=== PATIENT | male | born 1950 | race Caucasian/White ===

== ENCOUNTER 2018-08-14 11:27 | Inpatient (IN) ==
[2018-08-14] MEDS ORDERED: 0.9 % SODIUM CHLORIDE 1,000 ML IV ONE ×2 (11:39→12:49)
[2018-08-14] MEDS ORDERED: PANTOPRAZOLE 40 MG VIAL IV ONE ×2 (11:41→22:28)
--- NOTE | 2018-08-14 11:41 | Emergency Department Note ---
General Adult HPI - General Chief complaint: Weakness Stated complaint: weakness Time Seen by Provider: 08/14/18 11:37 Source: patient Mode of arrival: ambulatory Limitations: no limitations - History of Present Illness HPI Narrative: 68 year old male transported via ambulance from Jen TURNER's office with 1 month history of dark tarry diarrhea stools, with discontinuation of Plavix 2 weeks ago, upon arrival patient complaining of dyspnea at rest, weakness and continued dark brown-black liquid stools, found to be hypotensive in 90s/50s, presenting with 1 18g IV in R AC. Patient denies fevers, chills nor sweats. Able to speak in complete sentences. - Related Data Home Medications Medication Instructions Recorded Confirmed milk thistle 150 mg capsule 300 mg PO QDAY 08/04/18 08/14/18 Allergies Allergy/AdvReac Type Severity Reaction Status Date / Time No Known Drug Allergies Allergy Verified 08/04/18 14:45 Review of Systems All systems ED: reviewed and negative except as stated. Past Medical History - Past Medical History Source: nursing notes reviewed - Social History smoking status: Former smoker Physical Exam Limitations: no limitations General appearance: alert, anxious, in no apparent distress Head: atraumatic, normocephalic Eye: Present: normal appearance, PERRL, EOMI ENT: normal exam, normal oropharynx, mucous membranes dry Neck: Present: normal inspection, full ROM Chest: Present: normal inspection, symmetric chest wall rise Respiratory: Present: normal lung sounds bilaterally. Absent: respiratory distress, rales/crackles, wheezes, stridor Cardiovascular: Present: regular rate, normal rhythm, normal heart sounds Abdominal: Present: soft, distention, normal bowel sounds. Absent: tenderness, guarding, rebound Extremities: Present: normal inspection, full ROM Course Vital Signs Temperature 97.1 F 08/14/18 11:27 Pulse Rate 88 08/14/18 11:27 Respiratory Rate 16 08/14/18 11:27 Blood Pressure 98/58 08/14/18 11:27 Pulse Oximetry (%) 100 08/14/18 11:27 Temperature 97.1 F 08/14/18 11:27 Pulse Rate 70 08/14/18 14:47 Respiratory Rate 16 08/14/18 14:47 Blood Pressure 104/70 08/14/18 14:46 Pulse Oximetry (%) 96 08/14/18 14:47 Medical Decision Making - [facility] Narrative Medical decision making narrative: with liquid black stools, hemocult positive, 2 18g IV's obtained, given 1L LR bolus upon arrival, Protonix 40mg IV and drip started, with BP improving from 80s/80s in field to 90s/60s. Patient underwent CT angio chest, CT abdomen/pelvis w/contrast with CT angio chest negative for PE, CT abdomen demonstrating diffuse markedly thickened transverse colon suspicious for colitis, c.diff toxin B negative. Aggressively volume hydrated and MAP improved to 80s. Discussed case with Dr. Bella, consulted, will undergo colonoscopy in the morning if patient remains medically stable. Discussed case with Dr. Ellison, hospitalist, to be admited for presumptive ischemic colitis vs GI bleed with diffuse transverse colitis. Agreed to admission at 15:12. - Lab Data Lab results reviewed: Yes I reviewed the patient's lab results. Result diagrams: 08/14/18 11:55 08/14/18 11:55 Lab Results 08/14/18 08/14/18 08/14/18 Range/Units 11:52 11:55 11:55 WBC 8.4 (4.5-11.0) K/mcL RBC 4.05 L (4.50-5.90) M/mcL Hgb 11.7 L (13.5-16.5) g/dL Hct 35.8 L (41.0-55.0) % POC Hct 33.0 L (41.0-55.0) % MCV 88.4 (80.0-100.0) fL MCH 29.0 (26.0-34.0) pg MCHC 32.8 (31.0-36.0) g/dL RDW 13.2 (11.5-14.5) % Plt Count 365 (140-440) K/mcL MPV 8.3 (7.4-10.4) fL Gran % 67.6 (38.0-78.0) % Lymph % (Auto) 18.8 (15.5-49.0) % [place] % (Auto) 13.0 H (1.0-12.0) % Eos % (Auto) 0.5 (0.0-7.0) % Baso % (Auto) 0.1 (0.0-2.0) % Gran # 5.7 (1.8-8.0) K/mcL Lymph # (Auto) 1.6 (1.5-4.8) K/mcL [place] # (Auto) 1.1 H (0.1-0.9) K/mcL Eos # (Auto) 0 (0.0-0.7) K/mcL Baso # (Auto) 0 (0.0-0.3) K/mcL Differential Comment PT 14.7 H (11.9-14.5) sec INR 1.2 H (0.9-1.1) VBG Lactic Acid (0.5-2.0) mmol/L POC Sodium 132 L (133-145) mmol/L Sodium 133 (133-145) mmol/L POC Potassium 3.4 (3.3-5.1) mmol/L Potassium 3.6 (3.3-5.1) mmol/L POC Chloride 96 (96-108) mmol/L Chloride 95 L (96-108) mmol/L Carbon Dioxide 21 L (22-30) mmol/L POC Total CO2 25 (22-30) mmol/L Anion Gap 17.0 H (8-16) POC BUN 15 (8-23) mg/dl BUN 16 (8-23) mg/dl Creatinine 0.7 (0.7-1.2) mg/dl POC Creatinine 0.7 (0.7-1.2) mg/dl GFR Calculation 96 Glucose 151 H (70-105) mg/dL POC Glucose 151 H (70-105) mg/dL Calcium 8.2 L (8.6-10.4) mg/dl POC WB Ioniz Calcium 1.03 L (1.16-1.32) mmol/L Total Bilirubin 0.9 (0.0-1.0) mg/dL AST 44 H (0-37) U/l ALT 46 H (0-40) U/l Alkaline Phosphatase 75 (39-117) U/L Troponin T (0-0.03) ng/ml Total Protein 5.9 (5.9-8.4) gm/dL Albumin 2.3 L (3.2-5.2) gm/dL Globulin 3.6 (2.2-3.7) gm/dL Albumin/Globulin Ratio 0.6 L (1.0-2.3) Lipase 21 (7-60) U/L Urine Color Urine Appearance Urine pH (5.0-9.0) Ur Specific [place] (1.000-1.035) Urine Protein (NEG) mg/dL Urine Glucose (UA) (NEG) mg/dL Urine Ketones (NEG) mg/dL Urine Occult Blood (<0.03) mg/dL Urine Nitrate (NEG) Urine Bilirubin (NEG) mg/dL Urine Urobilinogen (NEG) mg/dL Ur Leukocyte Esterase (NEG) /uL Ur Culture Indicated? 08/14/18 08/14/18 08/14/18 Range/Units 11:56 11:56 14:24 WBC (4.5-11.0) K/mcL RBC (4.50-5.90) M/mcL Hgb (13.5-16.5) g/dL Hct (41.0-55.0) % POC Hct (41.0-55.0) % MCV (80.0-100.0) fL MCH (26.0-34.0) pg MCHC (31.0-36.0) g/dL RDW (11.5-14.5) % Plt Count (140-440) K/mcL MPV (7.4-10.4) fL Gran % (38.0-78.0) % Lymph % (Auto) (15.5-49.0) % [place] % (Auto) (1.0-12.0) % Eos % (Auto) (0.0-7.0) % Baso % (Auto) (0.0-2.0) % Gran # (1.8-8.0) K/mcL Lymph # (Auto) (1.5-4.8) K/mcL [place] # (Auto) (0.1-0.9) K/mcL Eos # (Auto) (0.0-0.7) K/mcL Baso # (Auto) (0.0-0.3) K/mcL Differential Comment PT (11.9-14.5) sec INR (0.9-1.1) VBG Lactic Acid 2.1 H (0.5-2.0) mmol/L POC Sodium (133-145) mmol/L Sodium (133-145) mmol/L POC Potassium (3.3-5.1) mmol/L Potassium (3.3-5.1) mmol/L POC Chloride (96-108) mmol/L Chloride (96-108) mmol/L Carbon Dioxide (22-30) mmol/L POC Total CO2 (22-30) mmol/L Anion Gap (8-16) POC BUN (8-23) mg/dl BUN (8-23) mg/dl Creatinine (0.7-1.2) mg/dl POC Creatinine (0.7-1.2) mg/dl GFR Calculation Glucose (70-105) mg/dL POC Glucose (70-105) mg/dL Calcium (8.6-10.4) mg/dl POC WB Ioniz Calcium (1.16-1.32) mmol/L Total Bilirubin (0.0-1.0) mg/dL AST (0-37) U/l ALT (0-40) U/l Alkaline Phosphatase (39-117) U/L Troponin T < 0.01 (0-0.03) ng/ml Total Protein (5.9-8.4) gm/dL Albumin (3.2-5.2) gm/dL Globulin (2.2-3.7) gm/dL Albumin/Globulin Ratio (1.0-2.3) Lipase (7-60) U/L Urine Color Yellow Urine Appearance Clear Urine pH 5.0 (5.0-9.0) Ur Specific [place] 1.059 H (1.000-1.035) Urine Protein Neg (NEG) mg/dL Urine Glucose (UA) Negative (NEG) mg/dL Urine Ketones 20 A (NEG) mg/dL Urine Occult Blood Neg (<0.03) mg/dL Urine Nitrate Neg (NEG) Urine Bilirubin Neg (NEG) mg/dL Urine Urobilinogen Neg (NEG) mg/dL Ur Leukocyte Esterase Neg (NEG) /uL Ur Culture Indicated? No - Radiology Data Radiology results reviewed: Yes I reviewed the patient's radiology results. Disposition Pt seen by PANTOGRAPH ENGRAVER/PA only: No Clinical Impression: Colitis Disposition: Xfer As Inpt ([facility]) Condition: Serious Referrals: Sophy Vizcaino DO [Primary Care Provider] -
[2018-08-14] MEDS ORDERED: PANTOPRAZOLE 80 MG in 0.9 % SODIUM CHLORIDE 100 ML IV SCH (12:00)
[2018-08-14 12:23] LABS: Basophils # (Auto) 0 K/mcL (0.0-0.3); Basophils % (Auto) 0.1 % (0.0-2.0); Eosinophils # (Auto) 0 K/mcL (0.0-0.7); Eosinophils % (Auto) 0.5 % (0.0-7.0); Granulocytes % (Auto) 67.6 % (38.0-78.0); Lymphocytes # (Auto) 1.6 K/mcL (1.5-4.8); Lymphocytes % (Auto) 18.8 % (15.5-49.0); Mean Cell Volume 88.4 fL (80.0-100.0); Mean Corpuscular HGB Conc 32.8 g/dL (31.0-36.0); Monocytes # (Auto) 1.1 K/mcL (0.1-0.9); Platelet Count 365 K/mcL (140-440); RBC 4.05 M/mcL (4.50-5.90); Red Cell Distribution Width 13.2 % (11.5-14.5)
[2018-08-14 12:51] LABS: ALT/SGPT 46 U/l (0-40); Albumin 2.3 gm/dL (3.2-5.2); Albumin/Globulin Ratio 0.6 (1.0-2.3); Alkaline Phosphatase 75 U/L (39-117); Blood Urea Nitrogen 16 mg/dl (8-23); Lipase 21 U/L (7-60)
[2018-08-14 14:57] LABS: Appearance,Urine CLEAR; Bilirubin,Urine NEG (NEG); Color,Urine YELLOW; Glucose,Urine (UA) NEGATIVE (NEG); Leukocyte Esterase,Urine NEG /uL (NEG); Protein,Urine NEG (NEG); Specific Gravity,Urine 1.059 (1.000-1.035); Urine Blood NEG mg/dL (<0.03); Urobilinogen,Urine NEG (NEG)
--- NOTE | 2018-08-14 15:04 | Cat Scan Report ---
CLINICAL INFORMATION: Shortness breath following discontinuing anticoagulation COMPARISON: None. TECHNIQUE: 80 cc of Isovue-300 were injected intravenously. Using SmartPrep to maximize pulmonary artery opacification, 2.5 mm helical slices were obtained from the lung apices through the lung bases. Following reconstruction, 2.5 mm sagittal, coronal, and axial reformations were processed. The exam was reviewed at mediastinal, lung, and bone windows. The exam was performed using radiation dose optimization techniques including, but not limited to, automated exposure control, adjustment of the mA and/or kV according to patient size and use of iterative reconstruction technique. FINDINGS: Pulmonary parenchymal windows show scattered scarring in periphery of both lower lobes. No diffuse/regional infiltrates or nodules. The pleural spaces are normal. Pulmonary arteries are well-opacified and normal in contour and caliber without evidence of embolus. Thoracic aorta is also normal in contour and caliber. There is no adenopathy the mediastinal hilar or axillary region. The heart is borderline enlarged. The fibrofatty calcific plaque in the coronary arteries. Esophagus is unremarkable. Thyroid is diminutive The bones and soft tissues of the chest wall are normal. IMPRESSION: 1. No evidence of pulmonary embolus or other acute process 2. Heavy fibrofatty and calcific plaque in the coronary arteries. Suspect occlusion or subtotal occlusive disease. Consider cardiology referral for stress testing. 3. Diminutive thyroid. Please correlate with TSH and T4/T3 levels Interpreted and Authenticated by: Reji Qiu 08/14/18
--- NOTE | 2018-08-14 15:09 | Cat Scan Report ---
CLINICAL INFORMATION: Diffuse abdominal pain and diarrhea COMPARISON: None. TECHNIQUE: Following enteric contrast, 80 cc of Isovue-300 were injected intravenously, and 60 seconds later, 0.625 mm helical slices were obtained from the mid heart through the subtrochanteric regions. Following reconstruction, 2.5 mm sagittal, coronal and axial reformatted images were processed and reviewed at bone, lung and soft tissue windows. Five minutes later, 0.625 mm helical slices were obtained from the mid heart through the kidneys and viewed at soft tissue windows.The exam was performed using radiation dose optimization techniques including, but not limited to, automated exposure control, adjustment of the mA and/or kV according to patient size and use of iterative reconstruction technique. FINDINGS: There is mild fatty change of the liver, but no focal hepatic lesions. The gallbladder and bile ducts, both kidneys, adrenal glands, spleen, pancreas, and aorta, including aortic branches are normal in size, configuration and attenuation without focal lesion. No free air, free fluid or adenopathy. Images through the pelvis show prostate seminal vesicles and urinary bladder to be normal. There is diffuse wall thickening of the ascending, transverse and descending colonic segments with mild injection in the pericolonic fat. This would suggest an infiltrative pathology degenerative ischemia, infection or inflammation. The stomach and small bowel are normal. There is no free air, free fluid or adenopathy. Bone windows show no osseous abnormality IMPRESSION: Diffuse wall thickening of the ascending colon transverse and descending colon with adjacent pericolonic fat injection suggesting diffuse infiltrative pathology such as inflammatory bowel disease (ulcerative colitis), pseudomembranous colitis, ischemic colitis or infectious colitis. Suggest colonoscopy Interpreted and Authenticated by: Reji Qiu 08/14/18
[2018-08-14 15:48] LABS: Band Neutrophils % 24 % (0-10); Eosinophils % (Manual) 2 % (0-7); Lymphocytes % 31 % (15-49); Monocytes % (Manual) 11 % (1-12); Platelet Estimate NORMAL (NORMAL); RBC Morphology NORMAL (NORMAL); Segmented Neutrophils % 32 % (38-78); Toxic Granulation FEW (NONE SEEN)
--- NOTE | 2018-08-14 16:23 | Internal Med History&Physical ---
Medical - H&P: [facility] Patient information: Note initiated : 08/14/18 at 4:20 pm Service Date, if different from initiated Date: [] Patient: Mal Green a 68 y/o M admitted on for weakness. Chief Complaint: [] History of present illness: Mr. Green is a 68 year old M Referred to the ED by Jen Fuller for hypotension and bloody diarrhea. Patient states that about a month ago on ' he noticed bright red blood per rectum. He stopped his Plavix at the time, for which he takes for vascular disease. He had a carotid endarterectomy on the right. Since stopping the Plavix use had dark diarrhea about 3 times a day and has been losing weight. He finally went into the walk-in clinic about a week ago and he was referred to see Jen Fuller who he saw today. Reports his systolic blood pressure was in the 80s in our office and he had evidence of GI bleed. He was sent to the ER where his blood pressure was in the 90s. I believe he received IV fluids at Jen Fuller's office. He received several liters of fluid in the ED which brought him up from the from 90 to low 100s. He was is mildly tachycardic. He also complains of dyspnea at rest and weakness, as well as lightheadedness. Denies fevers or chills. Has abdominal pain which he isolated more in the right lower quadrant which is crampy and sometimes sharp. In the ED had a CT abdomen pelvis which showed diffusely colitis along the a sending transverse and descending colon. C. difficile toxin was negative. Review of Systems: Pertinent positive as above. Denies headache/fever/chills/nausea/vomiting/chest pain/cough. Remaining 10 point review of systems reviewed and negative Medical - H&P: PM Medical history: Medical History (Last Updated 08/12/18 @ 14:24 by Makenna Jim) Bilateral carotid artery stenosis (Chronic) Hepatitis C (Chronic) finished Harvoni Hepatitis B (Chronic) Diabetes (Chronic ~2009) diet controlled Anemia (Chronic) Past Surgical History (Last Updated 08/12/18 @ 14:24 by Makenna Jim) History of colonoscopy (Chronic) History of surgery (Chronic ~03/2018) Right carotid endarterectomy Family History (Last Updated 08/12/18 @ 14:25 by Makenna Jim) Other Mother had Alzheimer's and father had vascular disease Social History (Last Updated 08/12/18 @ 14:26 by Makenna Jim) Quit smoking and drinking in the 80s Embolus with a cane Lives by himself Medical - H&P: Meds Home Medications Medication Instructions Recorded Confirmed Type milk thistle 150 mg capsule 300 mg PO QDAY 08/04/18 08/14/18 History Allergies Allergy/AdvReac Type Severity Reaction Status Date / Time No Known Drug Allergies Allergy Verified 08/04/18 14:45 Medical - H&P: Exam - Constitutional Vitals: Temp Pulse Resp BP Pulse Ox 97.1 F 88 22 99/74 99 08/14/18 11:27 08/14/18 15:46 08/14/18 15:46 08/14/18 15:46 08/14/18 15:46 Exam: General: Appears quite fatigued ,no acute Distress Eyes/N/T: EOMI, PEERL, DMM Head/Neck: neck supple, normocephalic atraumatic CV: Mildly tacky but regular , 2 out of 6 systolic murmur Pulm: Clear b/l, no wheezing/rhonchi/rales Abd: soft, minimally tender right quadrants, +BS x4 Ext: no clubbing/cyanosis/edema Neuro: Lethargic, no focal deficits, moves all extremities, CN 2-12 grossly intact, symmetrical strength b/l upper/lower, sensations intact b/l upper/lower Skin: warm/dry Medical - H&P: Reslt - Labs CBC & Chem 7: 08/14/18 11:55 08/14/18 11:55 Labs: Short CBC 08/14/18 Range/Units 11:55 WBC 8.4 (4.5-11.0) K/mcL Hgb 11.7 L (13.5-16.5) g/dL Hct 35.8 L (41.0-55.0) % Plt Count 365 (140-440) K/mcL BMP 08/14/18 11:55 Sodium 133 Potassium 3.6 Chloride 95 L Carbon Dioxide 21 L BUN 16 Creatinine 0.7 Glucose 151 H Calcium 8.2 L Cardiac Enzymes 08/14/18 Range/Units 11:56 Troponin T < 0.01 (0-0.03) ng/ml Liver Function 03/16/19 Range/Units 11:55 Total Bilirubin 0.9 (0.0-1.0) mg/dL AST 44 H (0-37) U/l ALT 46 H (0-40) U/l Alkaline Phosphatase 75 (39-117) U/L Albumin 2.3 L (3.2-5.2) gm/dL Urine 08/14/18 Range/Units 14:24 Urine Color Yellow Urine Appearance Clear Urine pH 5.0 (5.0-9.0) Ur Specific [place] 1.059 H (1.000-1.035) Urine Protein Neg (NEG) mg/dL Urine Glucose (UA) Negative (NEG) mg/dL - Impressions CTA chest no PE CT of the abdomen shows diffuse wall thickening of the descending transverse and descending colon and adjacent pericolonic fat injected suggesting diffuse inf iltrative pathology such as inflammatory bowel disease pseudomembranous colitis ischemic colitis or infectious colitis Medical - H&P: A/P - Narrative A/P Narrative: A: *Bloody diarrhea with diffuse colitis: Differential includes ischemic colitis versus infectious versus inflammatory bowel Dz; -c. diff neg *Symptomatic anemia with Dyspnea and Hypotension: *DM: Diet-controlled *Vascular disease: With carotid endarterectomy *History of hepatitis C: Treated with Harvoni * P: -IVF's -Serial H&H, -Protonix drip -Stool culture and fecal WBCs pending -Dr. Bella for colonoscopy in the morning -Clear liquid diet with n.p.o. after midnight -check esr and manual diff - -SSI -pt/ot -ppx: SCD
[2018-08-14] MEDS ORDERED: MAGNESIUM SULFATE 2 GM/50 ML BAG IV PRN (18:56)
[2018-08-14] MEDS ORDERED: IPRATROPIUM/ALBUTEROL 3 ML AMPUL.NEB NEB PRN (18:56)
[2018-08-14] MEDS ORDERED: PROCHLORPERAZINE 10 MG/2 ML VIAL IV PRN (18:56)
[2018-08-14] MEDS ORDERED: ONDANSETRON 4 MG/2 ML VIAL IV PRN (18:56)
[2018-08-14] MEDS ORDERED: ACETAMINOPHEN 325 MG TABLET PO PRN (18:56)
[2018-08-14] MEDS ORDERED: POTASSIUM CHLORIDE 40 MEQ in DEXTROSE 5% IN WATER 500 ML IV PRN (18:56)
[2018-08-14] MEDS ORDERED: DEXTROSE 31 GM ORAL.SUSP PO PRN (18:56)
[2018-08-14] MEDS ORDERED: POTASSIUM CHLORIDE 20 MEQ TABLET PO PRN ×2 (18:56)
[2018-08-14] MEDS ORDERED: 0.9 % SODIUM CHLORIDE 250 ML IV SCH (18:56)
[2018-08-14] MEDS ORDERED: DEXTROSE 50% 50 ML VIAL IV PRN (18:56)
[2018-08-14] MEDS: 0.9 % SODIUM CHLORIDE 1,000 ML IV SCH (19:00)
[2018-08-14] MEDS: INSULIN LISPRO 1 UNIT/0.01 ML UNIT SQ SCH ×2 (19:26→21:52)
[2018-08-14 20:50] LABS: ALT/SGPT 39 U/l (0-40); Albumin 1.8 gm/dL (3.2-5.2); Albumin/Globulin Ratio 0.5 (1.0-2.3); Alkaline Phosphatase 69 U/L (39-117); Bilirubin,Direct < 0.2 mg/dL (0.0-0.3); Blood Urea Nitrogen 15 mg/dl (8-23); C-Reactive Protein 10.5 mg/dl (0.0-0.8); Gamma Glutamyl Transpeptidase 31 U/L (8-61); Uric Acid 3.4 mg/dL (2.5-8.0)
[2018-08-14] MEDS: CIPROFLOXACIN 400 MG/200 ML BAG IV SCH (21:51)
[2018-08-14] MEDS: PANTOPRAZOLE 80 MG in 0.9 % SODIUM CHLORIDE 100 ML IV SCH (22:43)
[2018-08-14] MEDS: 0.9 % SODIUM CHLORIDE 10 ML SYRINGE IV SCH (22:45)
[2018-08-14] MEDS: metroNIDAZOLE 500 MG/100 ML BAG IV SCH (23:33)
[2018-08-15] MEDS: 0.9 % SODIUM CHLORIDE 1,000 ML IV SCH ×4 (02:19→20:50)
[2018-08-15] MEDS: metroNIDAZOLE 500 MG/100 ML BAG IV SCH ×3 (05:50→22:42)
[2018-08-15] MEDS: 0.9 % SODIUM CHLORIDE 10 ML SYRINGE IV SCH ×3 (05:53→21:02)
[2018-08-15 06:13] LABS: Mean Cell Volume 88.7 fL (80.0-100.0); Mean Corpuscular HGB Conc 32.5 g/dL (31.0-36.0); Platelet Count 308 K/mcL (140-440); Red Cell Distribution Width 12.8 % (11.5-14.5)
[2018-08-15 06:37] LABS: ALT/SGPT 47 U/l (0-40); Albumin 1.8 gm/dL (3.2-5.2); Albumin/Globulin Ratio 0.6 (1.0-2.3); Alkaline Phosphatase 60 U/L (39-117); Bilirubin,Direct < 0.2 mg/dL (0.0-0.3); Blood Urea Nitrogen 13 mg/dl (8-23); Gamma Glutamyl Transpeptidase 27 U/L (8-61); Uric Acid 2.7 mg/dL (2.5-8.0)
[2018-08-15 06:42] LABS: Band Neutrophils % 30 % (0-10); Lymphocytes % 27 % (15-49); Monocytes % (Manual) 18 % (1-12); Platelet Estimate NORMAL (NORMAL); RBC Morphology NORMAL (NORMAL); Segmented Neutrophils % 25 % (38-78); Toxic Granulation 2+ (NONE SEEN)
--- NOTE | 2018-08-15 08:05 | Internal Med Progress Note ---
Medical - PN: Subj Patient information: Note initiated : 08/15/18 at 8:00 am Service Date, if different from initiated Date: [] Patient: Mal Green a 68 y/o M admitted on 08/14/18 for weakness. Chief Complaint: [] Interval history: Mr. Green is a 68 year old M Referred to the ED by Jen Fuller for hypotension and bloody diarrhea. Patient states that about a month ago on ' he noticed bright red blood per rectum. He stopped his Plavix at the time, for which he takes for vascular disease. He had a carotid endarterectomy on the right. Since stopping the Plavix use had dark diarrhea about 3 times a day and has been losing weight. He finally went into the walk-in clinic about a week ago and he was referred to see Jen Fuller who he saw today. Reports his systolic blood pressure was in the 80s in our office and he had evidence of GI bleed. He was sent to the ER where his blood pressure was in the 90s. I believe he received IV fluids at Jen Fuller's office. He received several liters of fluid in the ED which brought him up from the from 90 to low 100s. He was is mildly tachycardic. He also complains of dyspnea at rest and weakness, as well as lightheadedness. Denies fevers or chills. Has abdominal pain which he isolated more in the right lower quadrant which is crampy and sometimes sharp. In the ED had a CT abdomen pelvis which showed diffusely colitis along the a sending transverse and descending colon. C. difficile toxin was negative. 08/15 Patient adamantly refusing to undergo colonoscopy at the facility. Willing to undergo EGD but not colonoscopy. Had a discussion with him I could not persuade him. Said he is okay with having it done at [place] and requested the nurse life-flight him to [place]. Now he is okay with have the procedure done here. One episode of diarrhea overnight. Has some abdominal discomfort but otherwise no complaints Review of Systems: denies headache/fever/chills/nausea/vomiting/chest pain/cough/dyspnea. Otherwise see above. - Constitutional Vitals: Vital Signs Temp Pulse Resp BP Pulse Ox 98.1 F 93 H 18 103/59 94 08/14/18 18:54 08/15/18 01:01 08/15/18 06:05 08/15/18 06:05 08/15/18 06:05 Period Temp Pulse Resp BP Sys/Leon Pulse Ox Last 24 Hr 97.1 F-98.1 F 67-103 11-28 96-130/56-97 93-100 Intake and Output 08/14/18 08/15/18 08/15/18 21:59 05:59 13:59 Intake Total 1000 1760 Balance 1000 1760 Weight 66.814 kg Intake & Output: Intake & Output 08/14/18 08/15/18 08/15/18 21:59 05:59 13:59 Intake Total 1000 1760 Balance 1000 1760 Weight 66.814 kg Intake: IV 1000 1400 Sodium Chloride 0.9% 1,000 ml @ 1000 1000 100 mls/hr IV .Q10H IZAIAH Rx#: [id number] Oral 360 Exam: General: Appears quite fatigued ,no acute Distress Eyes/N/T: EOMI, Head/Neck: neck supple, CV: RRR, 2/6SM Pulm: Clear b/l, no wheezing/rhonchi/rales Abd: soft, minimally tender right quadrants, +BS x4 Ext: no clubbing/cyanosis/edema Neuro: Lethargic, no focal deficits, moves all extremities, Skin: warm/dry Medical - PN: Obj Da - Labs CBC & Chem 7: 08/15/18 03:57 08/15/18 03:57 Labs: Abnormal Lab Results 08/15/18 08/15/18 08/14/18 03:57 03:57 19:17 RBC 3.20 L Hgb 9.2 L Hct 28.3 L POC Hct [place] % (Auto) [place] # (Auto) Seg Neutrophils % 25 L Band Neutrophils % 30 H Monocytes % (Manual) 18 H WBC Morphology Abnorm A Toxic Granulation 2+ A ESR PT INR VBG Lactic Acid POC Sodium Sodium 130 L Chloride Carbon Dioxide 19 L 20 L Anion Gap Creatinine 0.6 L 0.6 L Glucose 185 H 205 H POC Glucose Calcium 7.5 L 7.6 L POC WB Ioniz Calcium Phosphorus 0.9 L 2.6 L AST 65 H 46 H ALT 47 H Lactate Dehydrogenase 255 H C-Reactive Protein 10.5 H Total Protein 4.7 L 5.4 L Albumin 1.8 L 1.8 L Albumin/Globulin Ratio 0.6 L 0.5 L Ur Specific [place] Urine Ketones 08/14/18 08/14/18 08/14/18 19:17 14:24 11:56 RBC Hgb 10.4 L Hct 32.1 L POC Hct [place] % (Auto) [place] # (Auto) Seg Neutrophils % Band Neutrophils % Monocytes % (Manual) WBC Morphology Toxic Granulation ESR 42 H PT INR VBG Lactic Acid 2.1 H POC Sodium Sodium Chloride Carbon Dioxide Anion Gap Creatinine Glucose POC Glucose Calcium POC WB Ioniz Calcium Phosphorus AST ALT Lactate Dehydrogenase C-Reactive Protein Total Protein Albumin Albumin/Globulin Ratio Ur Specific [place] 1.059 H Urine Ketones 20 A 08/14/18 08/14/18 08/14/18 11:55 11:55 11:55 RBC 4.05 L Hgb 11.7 L Hct 35.8 L POC Hct 33.0 L [place] % (Auto) 13.0 H [place] # (Auto) 1.1 H Seg Neutrophils % 32 L Band Neutrophils % 24 H Monocytes % (Manual) WBC Morphology Abnorm A Toxic Granulation Few A ESR PT INR VBG Lactic Acid POC Sodium 132 L Sodium Chloride 95 L Carbon Dioxide 21 L Anion Gap 17.0 H Creatinine Glucose 151 H POC Glucose 151 H Calcium 8.2 L POC WB Ioniz Calcium 1.03 L Phosphorus AST 44 H ALT 46 H Lactate Dehydrogenase C-Reactive Protein Total Protein Albumin 2.3 L Albumin/Globulin Ratio 0.6 L Ur Specific [place] Urine Ketones 08/14/18 11:52 RBC Hgb Hct POC Hct [place] % (Auto) [place] # (Auto) Seg Neutrophils % Band Neutrophils % Monocytes % (Manual) WBC Morphology Toxic Granulation ESR PT 14.7 H INR 1.2 H VBG Lactic Acid POC Sodium Sodium Chloride Carbon Dioxide Anion Gap Creatinine Glucose POC Glucose Calcium POC WB Ioniz Calcium Phosphorus AST ALT Lactate Dehydrogenase C-Reactive Protein Total Protein Albumin Albumin/Globulin Ratio Ur Specific [place] Urine Ketones Meds: Medications Acetaminophen (Tylenol) 650 mg PO Q6HP PRN PRN Reason: PAIN/FEVER > 101 Albuterol/Ipratropium (Duoneb) 3 ml NEB Q4HP PRN PRN Reason: Shortness Of Breath Dextrose (Dextrose 50%) 0 ml IV UD PRN PRN Reason: Hypoglycemia Diagnostic Test (Pha) (Accu-Chek) 1 each FS ACHS IZAIAH Last Admin: 03/16/19 21:52 Dose: 1 each Documented by: Glucose (Insta-Glucose) 15 gm PO PRN PRN PRN Reason: Hypoglycemia Pantoprazole Sodium 80 mg/ (Sodium Chloride) 100 mls @ 10 mls/hr IV Q10H [facility] Last Admin: 08/14/18 22:43 Dose: 8 mg/hr, 10 mls/hr Documented by: Potassium Chloride 40 meq/ (Dextrose) 520 mls @ 130 mls/hr IV ONCE PRN PRN Reason: Potassium < 3 Magnesium Sulfate (Magnesium Sulfate) 2 gm in 50 mls @ 50 mls/hr IV ONCE PRN PRN Reason: Magnesium </= 1.6 Sodium Chloride (Sodium Chloride 0.9%) 1,000 mls @ 100 mls/hr IV .Q10H [facility] Stop: 08/16/18 00:55 Last Admin: 08/15/18 03:22 Dose: Not Given Documented by: Ciprofloxacin (Cipro) 400 mg in 200 mls @ 200 mls/hr IV Q12H [facility]; Protocol Last Infusion: 08/15/18 00:48 Dose: Infused Documented by: Metronidazole (Flagyl) 500 mg in 100 mls @ 100 mls/hr IV Q8H [facility]; Protocol Last Admin: 08/15/18 05:50 Dose: 100 mls/hr Documented by: Insulin Human Lispro (Humalog) 0 unit SQ [facility]; Protocol Last Admin: 08/14/18 21:52 Dose: Not Given Documented by: Ondansetron HCl (Zofran) 4 mg IV Q4HP PRN PRN Reason: Nausea And Vomiting Potassium Chloride (Kdur) 40 meq PO ONCE PRN PRN Reason: Potssium is 3-3.5 Potassium Chloride (Kdur) 40 meq PO ONCE PRN PRN Reason: Potassium < 3 Prochlorperazine (Compazine) 10 mg IV Q6HP PRN PRN Reason: Nausea And Vomiting Sodium Chloride (Saline Flush) 10 ml IV Q8 [facility] Last Admin: 08/15/18 05:53 Dose: Not Given Documented by: Medical - PN: A/P - Time Spent With Patient Total time spent is greater than 50% in coordination of care (as documented) at patient's floor/unit and/or counseling patient: - Narrative A/P Narrative: A: *Bloody diarrhea with diffuse colitis: Differential includes ischemic colitis versus infectious versus inflammatory bowel Dz; -c. diff neg *Symptomatic acute blood loss anemia w/Dyspnea and Hypotension: 2/2 above, *DM: Diet-controlled *Vascular disease: With carotid endarterectomy *History of hepatitis C: Treated with Harvoni *Malnutrition: P: -IVF's -Serial H&H, -Protonix drip -Stool culture pending -Dr. Bella for colonoscopy this morning - -SSI -pt/ot -ppx: SCD Medical - PN: Qual - VTE Deep Vein Thrombosis/Pulmonary Embolism Present on Admission: Yes
[2018-08-15] MEDS ORDERED: PEG 3350/NA SULF,BICARB,CL/KCL 4,000 ML ORAL.SOL PO ONE ×2 (08:37→14:25)
[2018-08-15] MEDS: CIPROFLOXACIN 400 MG/200 ML BAG IV SCH ×2 (09:07→21:20)
[2018-08-15] MEDS: PANTOPRAZOLE 80 MG in 0.9 % SODIUM CHLORIDE 100 ML IV SCH ×3 (09:07→22:21)
[2018-08-15] MEDS: INSULIN LISPRO 1 UNIT/0.01 ML UNIT SQ SCH ×4 (09:15→21:01)
[2018-08-15] MEDS ORDERED: IPRATROPIUM/ALBUTEROL 3 ML AMPUL.NEB NEB PRN (11:58)
[2018-08-15] MEDS ORDERED: DEXTROSE 31 GM ORAL.SUSP PO PRN (11:58)
[2018-08-15] MEDS ORDERED: POTASSIUM CHLORIDE 40 MEQ in DEXTROSE 5% IN WATER 500 ML IV PRN (11:58)
[2018-08-15] MEDS ORDERED: ONDANSETRON 4 MG/2 ML VIAL IV PRN (11:58)
[2018-08-15] MEDS ORDERED: DEXTROSE 50% 50 ML VIAL IV PRN (11:58)
[2018-08-15] MEDS ORDERED: PROCHLORPERAZINE 10 MG/2 ML VIAL IV PRN (11:58)
[2018-08-15] MEDS ORDERED: POTASSIUM CHLORIDE 20 MEQ TABLET PO PRN (11:58)
[2018-08-15] MEDS ORDERED: METOCLOPRAMIDE 10 MG/2 ML VIAL ONE (17:45)
[2018-08-15] MEDS ORDERED: METOCLOPRAMIDE 10 MG/2 ML VIAL IV ONE (18:00)
[2018-08-15] MEDS ORDERED: PROPOFOL 200 MG/20 ML VIAL IV SCH (18:45)
[2018-08-15] MEDS ORDERED: MIDAZOLAM 2 MG/2 ML VIAL IV SCH (18:45)
[2018-08-15] MEDS ORDERED: SODIUM CHLORIDE 3 % 500 ML IV ONE (19:01)
[2018-08-16] MEDS: PANTOPRAZOLE 80 MG in 0.9 % SODIUM CHLORIDE 100 ML IV SCH (04:10)
[2018-08-16] MEDS: 0.9 % SODIUM CHLORIDE 10 ML SYRINGE IV SCH ×3 (05:12→23:07)
[2018-08-16] MEDS: metroNIDAZOLE 500 MG/100 ML BAG IV SCH ×2 (05:12→15:10)
[2018-08-16 05:38] LABS: Mean Cell Volume 88.5 fL (80.0-100.0); Mean Corpuscular HGB Conc 33.4 g/dL (31.0-36.0); Platelet Count 277 K/mcL (140-440); RBC 3.13 M/mcL (4.50-5.90); Red Cell Distribution Width 13.1 % (11.5-14.5)
[2018-08-16 07:00] LABS: ALT/SGPT 31 U/l (0-40); Albumin 1.6 gm/dL (3.2-5.2); Albumin/Globulin Ratio 0.6 (1.0-2.3); Alkaline Phosphatase 51 U/L (39-117); Bilirubin,Direct < 0.2 mg/dL (0.0-0.3); Blood Urea Nitrogen 5 mg/dl (8-23); Gamma Glutamyl Transpeptidase 21 U/L (8-61); Uric Acid 1.9 mg/dL (2.5-8.0)
[2018-08-16] MEDS: INSULIN LISPRO 1 UNIT/0.01 ML UNIT SQ SCH ×4 (07:26→23:06)
--- NOTE | 2018-08-16 07:45 | Internal Med Progress Note ---
Medical - PN: Subj Patient information: Note initiated : 08/16/18 at 7:41 am Service Date, if different from initiated Date: [] Patient: Mal Green a 68 y/o M admitted on 08/14/18 for weakness. Chief Complaint: [] Interval history: Mr. Green is a 68 year old M Referred to the ED by Jen Fuller for hypotension and bloody diarrhea. Patient states that about a month ago on ' he noticed bright red blood per rectum. He stopped his Plavix at the time, for which he takes for vascular disease. He had a carotid endarterectomy on the right. Since stopping the Plavix use had dark diarrhea about 3 times a day and has been losing weight. He finally went into the walk-in clinic about a week ago and he was referred to see Jen Fuller who he saw today. Reports his systolic blood pressure was in the 80s in our office and he had evidence of GI bleed. He was sent to the ER where his blood pressure was in the 90s. I believe he received IV fluids at Jen Fuller's office. He received several liters of fluid in the ED which brought him up from the from 90 to low 100s. He was is mildly tachycardic. He also complains of dyspnea at rest and weakness, as well as lightheadedness. Denies fevers or chills. Has abdominal pain which he isolated more in the right lower quadrant which is crampy and sometimes sharp. In the ED had a CT abdomen pelvis which showed diffusely colitis along the a sending transverse and descending colon. C. difficile toxin was negative. 08/15 Patient adamantly refusing to undergo colonoscopy at the facility. Willing to undergo EGD but not colonoscopy. Had a discussion with him I could not persuade him. Said he is okay with having it done at [facility] and requested the nurse life-flight him to [facility] [place]. Now he is okay with have the procedure done here. One episode of diarrhea overnight. Has some abdominal discomfort but otherwise no complaints 08/16 No overnight events. Little bit of abdominal discomfort but overall improved. No new pains or complaints. One loose stool overnight. H&H stable. Review of Systems: denies headache/fever/chills/nausea/vomiting/chest pain/cough/dyspnea. Otherwise see above. - Constitutional Vitals: Vital Signs Temp Pulse Resp BP Pulse Ox 98.5 F 92 H 16 103/61 94 08/16/18 06:44 08/16/18 07:32 08/16/18 07:32 08/16/18 06:44 08/16/18 07:32 Period Temp Pulse Resp BP Sys/Leon Pulse Ox Last 24 Hr 97.2 F-98.5 F 73-94 14-24 86-136/50-72 88-100 Intake and Output 08/15/18 08/16/18 08/16/18 21:59 05:59 13:59 Intake Total 3619 300 1100 Output Total 2100 700 Balance 1519 -400 1100 Weight 69.853 kg Intake & Output: Intake & Output 08/15/18 08/16/18 08/16/18 21:59 05:59 13:59 Intake Total 3619 300 1100 Output Total 2100 700 Balance 1519 -400 1100 Weight 69.853 kg Intake: IV 755 021 9325 Sodium Chloride 0.9% 1,000 ml @ 420 100 mls/hr IV .Q10H IZAIAH Rx#: [id number] Oral 3000 Output: Void Amount 200 Urine/Stool Mix 1800 500 Stool 300 Other: Meal NPO Urine Appearance Clear Urine Color Tea Colored Stool Size Moderate Small Stool Color Brown Yellow Stool Consistency Liquid Liquid # Voids 1 1 # Bowel Movements 1 # of times incontinent of 1 Bowels Exam: General: Appears quite fatigued ,no acute Distress Eyes/N/T: EOMI, Head/Neck: neck supple, CV: RRR, 2/6SM Pulm: Clear b/l, no wheezing/rhonchi/rales Abd: soft, minimally tender right quadrants, +BS x4 Ext: no clubbing/cyanosis/edema Neuro: Lethargic, no focal deficits, moves all extremities, Skin: warm/dry Medical - PN: Obj Da - Labs CBC & Chem 7: 08/16/18 04:22 08/16/18 04:22 Labs: Abnormal Lab Results 08/16/18 08/16/18 08/15/18 04:22 04:22 16:41 RBC 3.13 L Hgb 9.2 L 11.4 L Hct 27.7 L 34.7 L POC Hct [place] % (Auto) [place] # (Auto) Seg Neutrophils % Band Neutrophils % Monocytes % (Manual) WBC Morphology Toxic Granulation ESR PT INR VBG Lactic Acid POC Sodium Sodium Potassium 2.9 L* Chloride Carbon Dioxide Anion Gap BUN 5 L Creatinine 0.4 L Glucose POC Glucose Uric Acid 1.9 L Calcium 7.3 L POC WB Ioniz Calcium Phosphorus AST ALT Lactate Dehydrogenase C-Reactive Protein Total Protein 4.2 L Albumin 1.6 L Albumin/Globulin Ratio 0.6 L Prealbumin Ur Specific [place] Urine Ketones 08/15/18 08/15/18 08/15/18 08:34 03:57 03:57 RBC 3.20 L Hgb 9.2 L Hct 28.3 L POC Hct [place] % (Auto) [place] # (Auto) Seg Neutrophils % 25 L Band Neutrophils % 30 H Monocytes % (Manual) 18 H WBC Morphology Abnorm A Toxic Granulation 2+ A ESR PT INR VBG Lactic Acid POC Sodium Sodium Potassium Chloride Carbon Dioxide 19 L Anion Gap BUN Creatinine 0.6 L Glucose 185 H POC Glucose Uric Acid Calcium 7.5 L POC WB Ioniz Calcium Phosphorus 0.9 L AST 65 H ALT 47 H Lactate Dehydrogenase C-Reactive Protein Total Protein 4.7 L Albumin 1.8 L Albumin/Globulin Ratio 0.6 L Prealbumin 4.0 L Ur Specific [place] Urine Ketones 08/14/18 08/14/18 08/14/18 19:17 19:17 14:24 RBC Hgb 10.4 L Hct 32.1 L POC Hct [place] % (Auto) [place] # (Auto) Seg Neutrophils % Band Neutrophils % Monocytes % (Manual) WBC Morphology Toxic Granulation ESR 42 H PT INR VBG Lactic Acid POC Sodium Sodium 130 L Potassium Chloride Carbon Dioxide 20 L Anion Gap BUN Creatinine 0.6 L Glucose 205 H POC Glucose Uric Acid Calcium 7.6 L POC WB Ioniz Calcium Phosphorus 2.6 L AST 46 H ALT Lactate Dehydrogenase 255 H C-Reactive Protein 10.5 H Total Protein 5.4 L Albumin 1.8 L Albumin/Globulin Ratio 0.5 L Prealbumin Ur Specific [place] 1.059 H Urine Ketones 20 A 08/14/18 08/14/18 08/14/18 11:56 11:55 11:55 RBC Hgb Hct POC Hct 33.0 L [place] % (Auto) [place] # (Auto) Seg Neutrophils % 32 L Band Neutrophils % 24 H Monocytes % (Manual) WBC Morphology Abnorm A Toxic Granulation Few A ESR PT INR VBG Lactic Acid 2.1 H POC Sodium 132 L Sodium Potassium Chloride 95 L Carbon Dioxide 21 L Anion Gap 17.0 H BUN Creatinine Glucose 151 H POC Glucose 151 H Uric Acid Calcium 8.2 L POC WB Ioniz Calcium 1.03 L Phosphorus AST 44 H ALT 46 H Lactate Dehydrogenase C-Reactive Protein Total Protein Albumin 2.3 L Albumin/Globulin Ratio 0.6 L Prealbumin Ur Specific [place] Urine Ketones 08/14/18 08/14/18 11:55 11:52 RBC 4.05 L Hgb 11.7 L Hct 35.8 L POC Hct [place] % (Auto) 13.0 H [place] # (Auto) 1.1 H Seg Neutrophils % Band Neutrophils % Monocytes % (Manual) WBC Morphology Toxic Granulation ESR PT 14.7 H INR 1.2 H VBG Lactic Acid POC Sodium Sodium Potassium Chloride Carbon Dioxide Anion Gap BUN Creatinine Glucose POC Glucose Uric Acid Calcium POC WB Ioniz Calcium Phosphorus AST ALT Lactate Dehydrogenase C-Reactive Protein Total Protein Albumin Albumin/Globulin Ratio Prealbumin Ur Specific [place] Urine Ketones Meds: Medications Acetaminophen (Tylenol) 650 mg PO Q6HP PRN PRN Reason: PAIN/FEVER > 101 Albuterol/Ipratropium (Duoneb) 3 ml NEB Q4HP PRN PRN Reason: Shortness Of Breath Dextrose (Dextrose 50%) 0 ml IV UD PRN PRN Reason: Hypoglycemia Diagnostic Test (Pha) (Accu-Chek) 1 each FS ACHS [facility] Last Admin: 08/16/18 07:26 Dose: 1 each Documented by: Glucose (Insta-Glucose) 15 gm PO PRN PRN PRN Reason: Hypoglycemia Ciprofloxacin (Cipro) 400 mg in 200 mls @ 200 mls/hr IV Q12H IZAIAH; Protocol Last Infusion: 08/15/18 22:20 Dose: Infused Documented by: Potassium Chloride 40 meq/ (Dextrose) 520 mls @ 130 mls/hr IV ONCE PRN PRN Reason: Potassium < 3 Magnesium Sulfate (Magnesium Sulfate) 2 gm in 50 mls @ 50 mls/hr IV ONCE PRN PRN Reason: Magnesium </= 1.6 Metronidazole (Flagyl) 500 mg in 100 mls @ 100 mls/hr IV Q8H IZAIAH; Protocol Last Infusion: 08/16/18 06:12 Dose: Infused Documented by: Pantoprazole Sodium 80 mg/ (Sodium Chloride) 100 mls @ 10 mls/hr IV Q10H IZAIAH Last Admin: 08/16/18 04:10 Dose: Not Given Documented by: Insulin Human Lispro (Humalog) 0 unit SQ ACHS [facility]; Protocol Last Admin: 08/16/18 07:26 Dose: Not Given Documented by: Ondansetron HCl (Zofran) 4 mg IV Q4HP PRN PRN Reason: Nausea And Vomiting Potassium Chloride (Kdur) 40 meq PO ONCE PRN PRN Reason: Potssium is 3-3.5 Potassium Chloride (Kdur) 40 meq PO ONCE PRN PRN Reason: Potassium < 3 Prochlorperazine (Compazine) 10 mg IV Q6HP PRN PRN Reason: Nausea And Vomiting Sodium Chloride (Saline Flush) 10 ml IV Q8 [facility] Last Admin: 08/16/18 05:12 Dose: 10 ml Documented by: Medical - PN: A/P - Time Spent With Patient Total time spent is greater than 50% in coordination of care (as documented) at patient's floor/unit and/or counseling patient: - Narrative A/P Narrative: A: *Bloody diarrhea w/diffuse colitis: s/p colonoscopy 08/15 per GI IBD vs Ischemic colitis -c. diff neg *Symptomatic acute blood loss anemia w/Dyspnea and Hypotension: 2/2 above, -stable *DM: Diet-controlled *Vascular disease: With carotid endarterectomy *History of hepatitis C: Treated with Harvoni *Malnutrition: *Hypokalemia P: -s/p IVF -clears -monitor H&H -Dr. Bella following, pending labs -Plavix held -SSI -pt/ot -ppx: SCD Medical - PN: Qual - VTE Deep Vein Thrombosis/Pulmonary Embolism Present on Admission: Yes
[2018-08-16 07:55] LABS: Anisocytosis FEW (NONE SEEN); Band Neutrophils % 42 % (0-10); Dohle Bodies 1+ (NONE SEEN); Eosinophils % (Manual) 3 % (0-7); Hypochromasia 1+ (NONE SEEN); Lymphocytes % 28 % (15-49); Monocytes % (Manual) 12 % (1-12); Platelet Estimate NORMAL (NORMAL); RBC Morphology ABNORM (NORMAL); Segmented Neutrophils % 13 % (38-78); Toxic Granulation FEW (NONE SEEN)
[2018-08-16] MEDS: CIPROFLOXACIN 400 MG/200 ML BAG IV SCH ×2 (08:06→22:49)
[2018-08-16] MEDS ORDERED: 0.9 % SODIUM CHLORIDE 250 ML IV ONE (08:10)
--- NOTE | 2018-08-16 09:01 | Operative Note ---
DATE OF OPERATION: 08/15/2018 PREPROCEDURE DIAGNOSIS: Ischemic colitis. POSTPROCEDURE DIAGNOSES: Crohn's colitis versus ischemic colitis. PROCEDURE: Colonoscopy with biopsy. INSTRUMENT USED: Olympus MERRICK [id number] colonoscope ?, see nurse's notes. SPECIMENS OBTAINED: Biopsies from terminal ileum, biopsies from right colon, biopsies from left colon, biopsies from sigmoid colon. INDICATIONS FOR PROCEDURE: The patient is a 68-year-old gentleman whose primary care physician is Dr. Sophy Vizcaino. The patient was admitted by one of the hospitalist, Dr. Ellison. The patient did have some hypotension. He did have some previous bleeding that stopped after he stopped the anticoagulation medication. CAT scan, however, showed thickened transverse colon. There was concern that he had ischemic colitis since he did have some abdominal pain and bleeding. Endoscopy was indicated. He took nearly 2 gallons of Colyte before he was reasonably clear but still was not totally clear. INFORMED CONSENT: Time of informed consent was about 1905. The procedure was reviewed with the patient. The patient had no further questions and accepts the risks and benefits thereof. One of the risks that were discussed included . Additional risks that were also discussed included bleeding, reaction to medication, possible perforation and possible need for surgery. IV MEDICATIONS USED: Versed 2 mg and propofol 120 mg. FINDINGS: RECTUM: Hemorrhoids were noted. The distal rectum appeared normal. Then about 20 to 25 cm, there were a few ulcers and areas of erythema noted. The ulcers continued for about 10 cm. DESCENDING COLON: In the descending colon proximally there was some erythema, edema and some dusky appearance that seemed fairly classical for ischemic colitis. Then, however, there were more pseudopolyps and less dusky tissue and the appearance changed to be more consistent with Crohn's disease. Multiple biopsies were obtained. TRANSVERSE COLON/HEPATIC FLEXURE/ASCENDING COLON: There was occasionally nearly normal tissue, pseudopolyps and some exudate. Biopsies were obtained. CECUM: This appeared normal. TERMINAL ILEUM: This was inspected for a few centimeters and found to be normal. Once again, biopsies were taken from the terminal ileum, from the right colon, from the left colon, and from the sigmoid colon area. RECOMMENDATIONS: Await biopsy report. I would prefer to hold off on therapy until after the biopsy report is back. [facility] with reflex to Crohn's prognostic. We also get a fecal calprotectin. When more information is available, such as a pathology report, we may start some treatment if it appears to be Crohn's disease. If this is ischemic colitis, another exam in about 4 to 6 months may be of benefit. Sedation time is 1908 to 1999. Please refer to the preprocedure nurse's notes, procedure flowsheet, procedure record, and post-procedure assessment for details of the sedation including the pre-, intra-, and post-service work. CRD:atul Job ID: [id number] Doc ID: [id number] Irineo Mesa DO
[2018-08-16] MEDS: MAGNESIUM SULFATE 2 GM/50 ML BAG IV PRN ×2 (09:06→20:10)
[2018-08-16] MEDS ORDERED: MAGNESIUM SULFATE 2 GM/50 ML BAG IV ONE (18:05)
[2018-08-16] MEDS ORDERED: POTASSIUM CHLORIDE 20 MEQ PACKET PO ONE (18:05)
[2018-08-16] MEDS: POTASSIUM CHLORIDE 20 MEQ TABLET PO PRN ×2 (19:46→19:47)
[2018-08-16] MEDS: ACETAMINOPHEN 325 MG TABLET PO PRN (23:29)
[2018-08-17] MEDS: metroNIDAZOLE 500 MG/100 ML BAG IV SCH (00:04)
[2018-08-17] MEDS: 0.9 % SODIUM CHLORIDE 10 ML SYRINGE IV SCH ×2 (05:56→14:02)
[2018-08-17 06:47] LABS: Mean Cell Volume 89.1 fL (80.0-100.0); Mean Corpuscular HGB Conc 32.5 g/dL (31.0-36.0); Platelet Count 303 K/mcL (140-440); RBC 3.24 M/mcL (4.50-5.90); Red Cell Distribution Width 13.3 % (11.5-14.5)
[2018-08-17 07:12] LABS: ALT/SGPT 29 U/l (0-40); Albumin 1.9 gm/dL (3.2-5.2); Albumin/Globulin Ratio 0.8 (1.0-2.3); Alkaline Phosphatase 57 U/L (39-117); Bilirubin,Direct < 0.2 mg/dL (0.0-0.3); Blood Urea Nitrogen 7 mg/dl (8-23); Gamma Glutamyl Transpeptidase 24 U/L (8-61); Uric Acid 2.2 mg/dL (2.5-8.0)
[2018-08-17] MEDS: INSULIN LISPRO 1 UNIT/0.01 ML UNIT SQ SCH ×4 (07:25→21:49)
[2018-08-17 08:28] LABS: Band Neutrophils % 4 % (0-10); Basophils % (Manual) 1 % (0-2); Eosinophils % (Manual) 7 % (0-7); Lymphocytes % 27 % (15-49); Monocytes % (Manual) 11 % (1-12); Platelet Estimate NORMAL (NORMAL); RBC Morphology ABNORM (NORMAL); Segmented Neutrophils % 50 % (38-78); Toxic Granulation 1+ (NONE SEEN)
--- NOTE | 2018-08-17 11:53 | Surgical Pathology Report ---
HISTOLOGY SPECIMEN MICROSCOPIC DIAGNOSIS SPECIMEN A - SMALL BOWEL, TERMINAL ILEUM, BIOPSY: -- SMALL BOWEL MUCOSA WITH NO DIAGNOSTIC ALTERATION. SPECIMEN B - COLON, RIGHT, BIOPSY: -- ULCERATED SEVERELY ACTIVE COLITIS, SEE COMMENT. -- NO GRANULOMATA, DYSPLASIA OR MALIGNANCY IDENTIFIED. SPECIMEN C - COLON, LEFT, BIOPSY: -- ULCERATED SEVERELY ACTIVE COLITIS, SEE COMMENT. -- NO GRANULOMATA, DYSPLASIA OR MALIGNANCY IDENTIFIED. SPECIMEN D - COLON, SIGMOID, BIOPSY: -- MODERATELY ACTIVE COLITIS, SEE COMMENT. -- NO GRANULOMATA, DYSPLASIA OR MALIGNANCY IDENTIFIED. (EBD:amadou) COMMENT: The colon biopsies show active colitis including ulceration, cryptitis and crypt abscesses with crypt architectural changes. The findings may be compatible with inflammatory bowel disease in the correct clinical setting. No granulomata, dysplasia or malignancy is identified in any of the specimens. CLINICAL HISTORY CT thickened transverse; lower GI bleeding. PROCEDURAL IMPRESSION Ischemic colitis vs. Crohn's disease. GROSS DESCRIPTION Specimen A: Received in formalin labeled A terminal ileum, are three armas tissue fragments 0.1 to 0.4 cm. Totally submitted - one cassette. Specimen B: Received in formalin labeled B right colon biopsy, are eight armas tissue fragments 0.1 to 0.4 cm. Totally submitted - one cassette. Specimen C: Received in formalin labeled C left colon biopsy, are multiple armas-brown tissue fragments 0.1 to 0.5 cm. Totally submitted - one cassette. Specimen D: Received in formalin labeled D sigmoid colon biopsy, are nine armas tissue fragments 0.1 to 0.4 cm. Totally submitted - one cassette. (STS:amadou) Electronically Signed by: Denisse Cespedes M.D.
--- NOTE | 2018-08-17 17:42 | Internal Med Progress Note ---
Medical - PN: Subj Patient information: Note initiated : 08/17/18 at 5:39 pm Service Date, if different from initiated Date: [] Patient: Mal Green a 68 y/o M admitted on 08/14/18 for weakness. Chief Complaint: [] Interval history: Mr. Green is a 68 year old M Referred to the ED by Jen Fuller for hypotension and bloody diarrhea. Patient states that about a month ago on 's he noticed bright red b lood per rectum. He stopped his Plavix at the time, for which he takes for vascular disease. He had a carotid endarterectomy on the right. Since stopping the Plavix use had dark diarrhea about 3 times a day and has been losing weight. He finally went into the walk-in clinic about a week ago and he was referred to see Jen Fuller who he saw today. Reports his systolic blood pressure was in the 80s in our office and he had evidence of GI bleed. He was sent to the ER where his blood pressure was in the 90s. I believe he received IV fluids at Jen Fuller's office. He received several liters of fluid in the ED which brought him up from the from 90 to low 100s. He was is mildly tachycardic. He also complains of dyspnea at rest and weakness, as well as lightheadedness. Denies fevers or chills. Has abdominal pain which he isolated more in the right lower quadrant which is crampy and sometimes sharp. In the ED had a CT abdomen pelvis which showed diffusely colitis along the a sending transverse and descending colon. C. difficile toxin was negative. 08/15 Patient adamantly refusing to undergo colonoscopy at the facility. Willing to undergo EGD but not colonoscopy. Had a discussion with him I could not persuade him. Said he is okay with having it done at [facility] and requested the nurse life-flight him to [facility]. Now he is okay with have the procedure done here. One episode of diarrhea overnight. Has some abdominal discomfort but otherwise no complaints 08/16 No overnight events. Little bit of abdominal discomfort but overall improved. No new pains or complaints. One loose stool overnight. H&H stable. 08/17 Patient seen and examined, tolerating her diet well, still a bit discomfort in abdomen otherwise no new complaints or concerns. No significant blood per rectum, patient still feels quite a bit weak Pertinent ROS: Denies headache, dizziness Denies chest pain, palpitations Denies cough or shortness of breath Denies abdominal pain, nausea or vomiting. - Constitutional Vitals: Vital Signs Temp Pulse Resp BP Pulse Ox 98.0 F 85 22 115/77 97 08/17/18 16:00 08/17/18 16:00 08/17/18 16:00 08/17/18 16:00 08/17/18 16:00 Period Temp Pulse Resp BP Sys/Leon Pulse Ox Last 24 Hr 97.2 F-99.6 F 85-102 22-28 109-119/59-77 93-98 Intake and Output 08/17/18 08/17/18 08/17/18 05:59 13:59 21:59 Intake Total 450 240 400 Output Total 900 300 350 Balance -450 -60 50 Intake & Output: Intake & Output 08/17/18 08/17/18 08/17/18 05:59 13:59 21:59 Intake Total 450 240 400 Output Total 900 300 350 Balance -450 -60 50 Intake: IV 250 Oral 200 240 400 Output: Void Amount 300 300 150 Stool 600 200 Other: Meal Lunch Percent of Meal Consumed 100% Urine Appearance Clear Urine Color Straw Urine Odor Normal Stool Size Small Moderate Moderate Stool Color Brown Dark Red Blood Dark Red Blood Blood Tinged Stool Consistency Liquid Loose Loose Loose # Bowel Movements 1 Exam: Constitutional; Afebrile, cooperative, alert, not in distress. Respiratory system: Air Entry equal on both sides, No crackles or wheezing, no rhonchi. CVS- Rate rhythm regular, S1,S2 heard, no gallop, no rub. Abdomen- Soft nontender abdomen, no organomegaly, no tenderness, no guarding or rigidity, [employer]- AOOx3, moving all extremities, no gross focal deficit noted. Medical - PN: Obj Da - Labs CBC & Chem 7: 08/17/18 04:35 08/17/18 04:35 Labs: Abnormal Lab Results 08/17/18 08/17/18 08/16/18 04:35 04:35 04:22 RBC 3.24 L Hgb 9.4 L Hct 28.8 L Seg Neutrophils % Band Neutrophils % Monocytes % (Manual) WBC Morphology Abnorm A Toxic Granulation 1+ A Dohle Bodies RBC Morphology Abnorm A Polychromasia 1+ A Hypochromasia Anisocytosis ESR Sodium Potassium 2.9 L* Carbon Dioxide Anion Gap 6.0 L BUN 7 L 5 L Creatinine 0.6 L 0.4 L Glucose 122 H Uric Acid 2.2 L 1.9 L Calcium 7.4 L 7.3 L Phosphorus 1.9 L AST ALT Lactate Dehydrogenase C-Reactive Protein Total Protein 4.4 L 4.2 L Albumin 1.9 L 1.6 L Albumin/Globulin Ratio 0.8 L 0.6 L Prealbumin 08/16/18 08/15/18 08/15/18 04:22 16:41 08:34 RBC 3.13 L Hgb 9.2 L 11.4 L Hct 27.7 L 34.7 L Seg Neutrophils % 13 L Band Neutrophils % 42 H Monocytes % (Manual) WBC Morphology Abnorm A Toxic Granulation Few A Dohle Bodies 1+ A RBC Morphology Abnorm A Polychromasia Few A Hypochromasia 1+ A Anisocytosis Few A ESR Sodium Potassium Carbon Dioxide Anion Gap BUN Creatinine Glucose Uric Acid Calcium Phosphorus AST ALT Lactate Dehydrogenase C-Reactive Protein Total Protein Albumin Albumin/Globulin Ratio Prealbumin 4.0 L 08/15/18 08/15/18 08/14/18 03:57 03:57 19:17 RBC 3.20 L Hgb 9.2 L Hct 28.3 L Seg Neutrophils % 25 L Band Neutrophils % 30 H Monocytes % (Manual) 18 H WBC Morphology Abnorm A Toxic Granulation 2+ A Dohle Bodies RBC Morphology Polychromasia Hypochromasia Anisocytosis ESR Sodium 130 L Potassium Carbon Dioxide 19 L 20 L Anion Gap BUN Creatinine 0.6 L 0.6 L Glucose 185 H 205 H Uric Acid Calcium 7.5 L 7.6 L Phosphorus 0.9 L 2.6 L AST 65 H 46 H ALT 47 H Lactate Dehydrogenase 255 H C-Reactive Protein 10.5 H Total Protein 4.7 L 5.4 L Albumin 1.8 L 1.8 L Albumin/Globulin Ratio 0.6 L 0.5 L Prealbumin 08/14/18 19:17 RBC Hgb 10.4 L Hct 32.1 L Seg Neutrophils % Band Neutrophils % Monocytes % (Manual) WBC Morphology Toxic Granulation Dohle Bodies RBC Morphology Polychromasia Hypochromasia Anisocytosis ESR 42 H Sodium Potassium Carbon Dioxide Anion Gap BUN Creatinine Glucose Uric Acid Calcium Phosphorus AST ALT Lactate Dehydrogenase C-Reactive Protein Total Protein Albumin Albumin/Globulin Ratio Prealbumin Meds: Medications Acetaminophen (Tylenol) 650 mg PO Q6HP PRN PRN Reason: PAIN/FEVER > 101 Last Admin: 08/16/18 23:29 Dose: 650 mg Documented by: Albuterol/Ipratropium (Duoneb) 3 ml NEB Q4HP PRN PRN Reason: Shortness Of Breath Dextrose (Dextrose 50%) 0 ml IV UD PRN PRN Reason: Hypoglycemia Diagnostic Test (Pha) (Accu-Chek) 1 each FS [facility] Last Admin: 08/17/18 17:10 Dose: 1 each Documented by: Glucose (Insta-Glucose) 15 gm PO PRN PRN PRN Reason: Hypoglycemia Potassium Chloride 40 meq/ (Dextrose) 520 mls @ 130 mls/hr IV ONCE PRN PRN Reason: Potassium < 3 Last Infusion: 08/16/18 14:55 Dose: Infused Documented by: Magnesium Sulfate (Magnesium Sulfate) 2 gm in 50 mls @ 50 mls/hr IV ONCE PRN PRN Reason: Magnesium </= 1.6 Last Infusion: 08/17/18 00:05 Dose: Infused Documented by: Insulin Human Lispro (Humalog) 0 unit SQ [facility]; Protocol Last Admin: 08/17/18 17:12 Dose: 4 units Documented by: Ondansetron HCl (Zofran) 4 mg IV Q4HP PRN PRN Reason: Nausea And Vomiting Potassium Chloride (Kdur) 40 meq PO ONCE PRN PRN Reason: Potssium is 3-3.5 Last Admin: 08/16/18 19:47 Dose: 40 meq Documented by: Potassium Chloride (Kdur) 40 meq PO ONCE PRN PRN Reason: Potassium < 3 Prochlorperazine (Compazine) 10 mg IV Q6HP PRN PRN Reason: Nausea And Vomiting Sodium Chloride (Saline Flush) 10 ml IV Q8 [facility] Last Admin: 08/17/18 14:02 Dose: 10 ml Documented by: Medical - PN: A/P - Time Spent With Patient Total time spent is greater than 50% in coordination of care (as documented) at patient's floor/unit and/or counseling patient: - Narrative A/P Narrative: A: *Bloody diarrhea w/diffuse colitis: s/p colonoscopy 08/15 per GI IBD vs Ischemic colitis -c. diff neg *Symptomatic acute blood loss anemia w/Dyspnea and Hypotension: 2/2 above, -stable *DM: Diet-controlled *Vascular disease: With carotid endarterectomy *History of hepatitis C: Treated with Harvoni *Malnutrition: *Hypokalemia Hypoalbuminemia, due to gi loss P: -s/p IVF -advance diet, -monitor H&H, stble so far -Dr. Bella following, pending labs some of which have been sent outs -Plavix held, Ok to restart on d/c per GI -SSI -pt/ot -ppx: SCD anticipate d/c in AM, if remains stable and able to be discharged with therapy. Medical - PN: Qual - VTE Deep Vein Thrombosis/Pulmonary Embolism Present on Admission: Yes
[2018-08-17] MEDS: ACETAMINOPHEN 325 MG TABLET PO PRN (19:26)
[2018-08-17] MEDS ORDERED: LACTATED RINGERS 1,000 ML IV SCH (21:00)
[2018-08-17 21:17] LABS: Basophils # (Auto) 0 K/mcL (0.0-0.3); Basophils % (Auto) 0.6 % (0.0-2.0); Eosinophils # (Auto) 0.3 K/mcL (0.0-0.7); Eosinophils % (Auto) 4.4 % (0.0-7.0); Granulocytes % (Auto) 54.7 % (38.0-78.0); Lymphocytes # (Auto) 1.9 K/mcL (1.5-4.8); Lymphocytes % (Auto) 28.8 % (15.5-49.0); Mean Cell Volume 87.8 fL (80.0-100.0); Mean Corpuscular HGB Conc 32.5 g/dL (31.0-36.0); Monocytes # (Auto) 0.7 K/mcL (0.1-0.9); Monocytes % (Auto) 11.5 % (1.0-12.0); Platelet Count 297 K/mcL (140-440); RBC 3.37 M/mcL (4.50-5.90); Red Cell Distribution Width 13.6 % (11.5-14.5)
[2018-08-17 23:19] LABS: Appearance,Urine CLEAR; Bacteria,Urine 0 /hpf (0); Bilirubin,Urine NEG (NEG); Color,Urine YELLOW; Glucose,Urine (UA) NEGATIVE (NEG); Leukocyte Esterase,Urine 25 /uL (NEG); Mucus,Urine MANY /hpf (0); Protein,Urine NEG (NEG); Specific Gravity,Urine 1.016 (1.000-1.035); Urine Blood NEG mg/dL (<0.03); Urine RBC 0 /hpf (0-1); Urine Squamous Epithelial Cell 0 /hpf (0-4); Urine WBC 2 /hpf (0-4); Urobilinogen,Urine NEG (NEG)
[2018-08-17] MEDS ORDERED: IOPAMIDOL 100 ML BOTTLE IV ONE (23:27)
[2018-08-18] MEDS ORDERED: ZOLPIDEM 5 MG TABLET ONE (00:14)
[2018-08-18] MEDS: ZOLPIDEM 5 MG TABLET PO PRN ×2 (00:20→22:28)
[2018-08-18] MEDS: 0.9 % SODIUM CHLORIDE 10 ML SYRINGE IV SCH ×4 (00:21→21:15)
--- NOTE | 2018-08-18 05:19 | Cat Scan Report ---
CLINICAL INFORMATION: Chest/abdominal pain and diarrhea COMPARISON: Chest abdomen and pelvic CT - 08/14/2018 TECHNIQUE: Enteric contrast was utilized. 80 cc of Isovue-300 were injected intravenously, and 50 seconds later, 0.625 mm helical slices were obtained from the lung apices through the subtrochanteric regions of the femurs. Following reconstruction, 2.5 mm sagittal, coronal and axial reformatted images were processed and reviewed at multiple windows and levels. 7 mm MIP reconstructions were obtained through the lungs to optimize nodule detection.The exam was performed using radiation dose optimization techniques including, but not limited to, automated exposure control, adjustment of the mA and/or kV according to patient size and use of iterative reconstruction technique. FINDINGS: Pulmonary parenchymal windows show minimal scattered bibasilar scarring and subsegmental atelectasis in the posterior lower lobes. Small bilateral pleural effusions have developed since the CT three days ago. Mediastinal windows show the heart is normal in size with at the fibrofatty calcific plaque in the coronary arteries suggesting significant occlusive or subocclusive coronary artery disease. Mild calcification seen within the mitral valve. The thoracic aorta is normal in caliber with diffuse atherotic plaque as previously seen. Pulmonary arteries are well opacified without evidence of embolus. There is no adenopathy in the mediastinal hilar or axillary regions. The thyroid is mildly diminutive as previously seen. Images through the abdomen show fatty change within the liver which is also slightly inhomogeneous. No focal hepatic lesions. Gallbladder is contracted but otherwise normal. Intrahepatic and common bile ducts are normal caliber: CBD is 6 mm. Both kidneys, adrenal glands, spleen, and pancreas are normal. The aorta is normal in caliber, 18 mm, with moderate scattered fibrofatty and calcific atherosclerotic plaque. There is plaque in the celiac artery origin, but no definite stenosis. The SMA, SUSAN and renal arteries appear widely patent. Images through the pelvis show prostate, seminal vesicles and urinary bladder to be unremarkable. There is moderate wall thickening and enhancement throughout the colon with pericolonic inflammation which has increased significantly since the comparison CT three days prior. This has resulted in a featureless, ahaustral colon. Rectosigmoid involvement is new since the CT three days prior. Interval development of moderate free intraperitoneal fluid is suggestive of third spacing. There is no free air to suggest perforation. There is also mild wall and slightly circulares full thickening of the descending and transverse duodenum with small amount of periduodenal fluid. No adenopathy. Bones and soft tissues of the chest abdomen and pelvis are unremarkable IMPRESSION: 1. Moderate diffuse wall thickening of the entire colon (now including the rectosigmoid segment) and paracolonic inflammation worsening considerably since CT three days ago. In addition, there is now moderate free intraperitoneal fluid supportive of third spacing. The transverse colon diameter is 5.8 cm: toxic megacolon may be developing. Potential etiologies include: infectious colitis, pseudomembranous colitis or, less likely, ulcerative colitis. Ischemic colitis would be unlikely. Colonoscopy should be considered. 2. New small bilateral pleural effusions and subsegmental bibasilar atelectasis. 3. Heavy atherosclerotic plaque in the coronary arteries suggestive of occlusive and subocclusive coronary disease. Interpreted and Authenticated by: Reji Qiu 08/18/18
[2018-08-18] MEDS ORDERED: metroNIDAZOLE 500 MG/100 ML BAG IV ONE (05:46)
[2018-08-18] MEDS: metroNIDAZOLE 500 MG/100 ML BAG IV SCH ×3 (05:59→22:24)
[2018-08-18 06:41] LABS: Basophils # (Auto) 0.1 K/mcL (0.0-0.3); Eosinophils # (Auto) 0.4 K/mcL (0.0-0.7); Eosinophils % (Auto) 5.4 % (0.0-7.0); Lymphocytes % (Auto) 29.3 % (15.5-49.0); Mean Cell Volume 86.9 fL (80.0-100.0); Mean Corpuscular HGB Conc 33.6 g/dL (31.0-36.0); Monocytes # (Auto) 0.8 K/mcL (0.1-0.9); Monocytes % (Auto) 12.3 % (1.0-12.0); Platelet Count 331 K/mcL (140-440); RBC 3.33 M/mcL (4.50-5.90)
--- NOTE | 2018-08-18 06:56 | Internal Med Progress Note ---
Medical - PN: Subj Patient information: Note initiated : 08/18/18 at 6:54 am Service Date, if different from initiated Date: [] Patient: Mal Green a 68 y/o M admitted on 08/14/18 for weakness. Chief Complaint: [] Interval history: Mr. Green is a 68 year old M Referred to the ED by Jen Fuller for hypotension and bloody diarrhea. Patient states that about a month ago on 's he noticed bright red b lood per rectum. He stopped his Plavix at the time, for which he takes for vascular disease. He had a carotid endarterectomy on the right. Since stopping the Plavix use had dark diarrhea about 3 times a day and has been losing weight. He finally went into the walk-in clinic about a week ago and he was referred to see Jen Fuller who he saw today. Reports his systolic blood pressure was in the 80s in our office and he had evidence of GI bleed. He was sent to the ER where his blood pressure was in the 90s. I believe he received IV fluids at Jen Fuller's office. He received several liters of fluid in the ED which brought him up from the from 90 to low 100s. He was is mildly tachycardic. He also complains of dyspnea at rest and weakness, as well as lightheadedness. Denies fevers or chills. Has abdominal pain which he isolated more in the right lower quadrant which is crampy and sometimes sharp. In the ED had a CT abdomen pelvis which showed diffusely colitis along the a sending transverse and descending colon. C. difficile toxin was negative. 08/15 Patient adamantly refusing to undergo colonoscopy at the facility. Willing to undergo EGD but not colonoscopy. Had a discussion with him I could not persuade him. Said he is okay with having it done at [place] and requested the nurse life-flight him to [place]. Now he is okay with have the procedure done here. One episode of diarrhea overnight. Has some abdominal discomfort but otherwise no complaints 08/16 No overnight events. Little bit of abdominal discomfort but overall improved. No new pains or complaints. One loose stool overnight. H&H stable. 08/17 Patient seen and examined, tolerating her diet well, still a bit discomfort in abdomen otherwise no new complaints or concerns. No significant blood per rectum, patient still feels quite a bit weak 08/18 Patient is in examined, yesterday evening was febrile with a temperature of 102. Labs were unremarkable, blood culture sent. Repeat CT abdomen pelvis done shows that colitis is getting worse, colon diameter is 5.8 cm possible progression towards toxic neuro:, Patient feels weak, however his main concern is neuropathy denies any significant nausea or vomiting, has some tenderness in the left lower quadrant. I was unaware that a physical note in the chart had requested patient to be started on mesalamine, started that as per GI recommendations today, I discussed the biopsy results with Dr. Greene who will be following up on the patient he advised the patient to be started on IV Solu-Medrol 40 mg twice a day. Pertinent ROS: Denies headache, dizziness Denies chest pain, palpitations Denies cough or shortness of breath Denies abdominal pain, nausea or vomiting. - Constitutional Vitals: Vital Signs Temp Pulse Resp BP Pulse Ox 98.7 F 106 H 20 109/60 93 08/18/18 04:54 08/18/18 04:54 08/18/18 04:54 08/18/18 04:54 08/18/18 04:54 Period Temp Pulse Resp BP Sys/Leon Pulse Ox Last 24 Hr 97.2 F-102.2 F 77-109 18-24 108-129/60-79 93-98 Intake and Output 08/17/18 08/18/18 08/18/18 21:59 05:59 13:59 Intake Total 1580 300 Output Total 700 1625 Balance 880 -1325 Weight 178 lb 1.6 oz Intake & Output: Intake & Output 08/17/18 08/18/18 08/18/18 21:59 05:59 13:59 Intake Total 1580 300 Output Total 700 1625 Balance 880 -1325 Weight 178 lb 1.6 oz Intake: Oral 1580 300 Output: Void Amount 150 1175 Stool 550 450 Other: Meal Dinner Percent of Meal Consumed 100% Feeding Ability Independent Urine Appearance Clear Urine Color Pale Urine Odor Normal Stool Size Moderate Stool Color Brown Brown Black Stool Consistency Liquid Liquid Loose # of times incontinent of 1 Bowels Exam: Constitutional; Afebrile, cooperative, alert, not in distress. Eyes- No icterus, , No periorbital swelling Ears- Ext ear normal, hearing normal to conversation. Neck- Midline trachea, supple Respiratory system: Air Entry equal on both sides, No crackles or wheezing, no rhonchi. CVS- Rate rhythm regular, S1,S2 heard, no gallop, no rub. Abdomen- Soft abdomen, hypoactive bowel tones, patient has left lower quadrant mild tenderness, , no guarding or rigidity, AREA COORDINATOR- AOOx3, moving all extremities, no gross focal deficit noted. Medical - PN: Obj Da - Labs CBC & Chem 7: 08/18/18 05:00 08/17/18 04:35 Labs: Abnormal Lab Results 08/18/18 08/17/18 08/17/18 05:00 22:30 20:32 RBC 3.33 L 3.37 L Hgb 9.7 L 9.6 L Hct 28.9 L 29.6 L [place] % (Auto) 12.3 H Seg Neutrophils % Band Neutrophils % WBC Morphology Toxic Granulation Dohle Bodies RBC Morphology Polychromasia Hypochromasia Anisocytosis Potassium Anion Gap BUN Creatinine Glucose Uric Acid Calcium Phosphorus Total Protein Albumin Albumin/Globulin Ratio Prealbumin Ur Leukocyte Esterase 25 A Urine Mucus Many A 08/17/18 08/17/18 08/16/18 04:35 04:35 04:22 RBC 3.24 L Hgb 9.4 L Hct 28.8 L [place] % (Auto) Seg Neutrophils % Band Neutrophils % WBC Morphology Abnorm A Toxic Granulation 1+ A Dohle Bodies RBC Morphology Abnorm A Polychromasia 1+ A Hypochromasia Anisocytosis Potassium 2.9 L* Anion Gap 6.0 L BUN 7 L 5 L Creatinine 0.6 L 0.4 L Glucose 122 H Uric Acid 2.2 L 1.9 L Calcium 7.4 L 7.3 L Phosphorus 1.9 L Total Protein 4.4 L 4.2 L Albumin 1.9 L 1.6 L Albumin/Globulin Ratio 0.8 L 0.6 L Prealbumin Ur Leukocyte Esterase Urine Mucus 08/16/18 08/15/18 08/15/18 04:22 16:41 08:34 RBC 3.13 L Hgb 9.2 L 11.4 L Hct 27.7 L 34.7 L [place] % (Auto) Seg Neutrophils % 13 L Band Neutrophils % 42 H WBC Morphology Abnorm A Toxic Granulation Few A Dohle Bodies 1+ A RBC Morphology Abnorm A Polychromasia Few A Hypochromasia 1+ A Anisocytosis Few A Potassium Anion Gap BUN Creatinine Glucose Uric Acid Calcium Phosphorus Total Protein Albumin Albumin/Globulin Ratio Prealbumin 4.0 L Ur Leukocyte Esterase Urine Mucus Meds: Medications Acetaminophen (Tylenol) 650 mg PO Q6HP PRN PRN Reason: PAIN/FEVER > 101 Last Admin: 08/17/18 19:26 Dose: 650 mg Documented by: Albuterol/Ipratropium (Duoneb) 3 ml NEB Q4HP PRN PRN Reason: Shortness Of Breath Dextrose (Dextrose 50%) 0 ml IV UD PRN PRN Reason: Hypoglycemia Diagnostic Test (Pha) (Accu-Chek) 1 each FS [facility] Last Admin: 08/17/18 21:48 Dose: 1 each Documented by: Glucose (Insta-Glucose) 15 gm PO PRN PRN PRN Reason: Hypoglycemia Potassium Chloride 40 meq/ (Dextrose) 520 mls @ 130 mls/hr IV ONCE PRN PRN Reason: Potassium < 3 Last Infusion: 08/16/18 14:55 Dose: Infused Documented by: Magnesium Sulfate (Magnesium Sulfate) 2 gm in 50 mls @ 50 mls/hr IV ONCE PRN PRN Reason: Magnesium </= 1.6 Last Infusion: 08/17/18 00:05 Dose: Infused Documented by: Metronidazole (Flagyl) 500 mg in 100 mls @ 100 mls/hr IV Q8H [facility]; Protocol Last Admin: 08/18/18 05:59 Dose: Not Given Documented by: Ciprofloxacin (Cipro) 400 mg in 200 mls @ 200 mls/hr IV BID [facility]; Protocol Insulin Human Lispro (Humalog) 0 unit SQ [facility]; Protocol Last Admin: 08/17/18 21:49 Dose: Not Given Documented by: Mesalamine (Pentasa) 1,000 mg PO QID [facility] Methylprednisolone Sodium Succinate (Solu-Medrol) 40 mg IV Q12 [facility] Ondansetron HCl (Zofran) 4 mg IV Q4HP PRN PRN Reason: Nausea And Vomiting Potassium Chloride (Kdur) 40 meq PO ONCE PRN PRN Reason: Potssium is 3-3.5 Last Admin: 08/16/18 19:47 Dose: 40 meq Documented by: Potassium Chloride (Kdur) 40 meq PO ONCE PRN PRN Reason: Potassium < 3 Prochlorperazine (Compazine) 10 mg IV Q6HP PRN PRN Reason: Nausea And Vomiting Sodium Chloride (Saline Flush) 10 ml IV Q8 [facility] Last Admin: 08/18/18 06:03 Dose: 10 ml Documented by: Zolpidem Tartrate (Ambien) 5 mg PO HSP PRN PRN Reason: Insomnia Last Admin: 08/18/18 00:20 Dose: 5 mg Documented by: Medical - PN: A/P - Time Spent With Patient Total time spent is greater than 50% in coordination of care (as documented) at patient's floor/unit and/or counseling patient: - Narrative A/P Narrative: A: *Bloody diarrhea w/diffuse colitis: s/p colonoscopy 08/15 per GI IBD vs Ischemic colitis -c. diff neg *Symptomatic acute blood loss anemia w/Dyspnea and Hypotension: 2/2 above, -stable *DM: Diet-controlled *Vascular disease: With carotid endarterectomy *History of hepatitis C: Treated with Harvoni *Malnutrition: *Hypokalemia Hypoalbuminemia, DM neuropathy P: -monitor H&H, stable so far -Dr. Bella following, started on pentasa and IV solumedrol, will get surgery consult if patients colon diameter worsens, IV antibiotics started given worsening colitis. -Plavix held, Ok to restart on d/c per GI -Hypoalbumineuma is due to gi loss, will need dietary intervention once inflammation resolves. -SSI -pt/ot -ppx: [facility] - PN: Qual - VTE Deep Vein Thrombosis/Pulmonary Embolism Present on Admission: Yes
[2018-08-18 07:17] LABS: ALT/SGPT 23 U/l (0-40); Albumin 1.8 gm/dL (3.2-5.2); Albumin/Globulin Ratio 0.6 (1.0-2.3); Alkaline Phosphatase 57 U/L (39-117); Bilirubin,Direct < 0.2 mg/dL (0.0-0.3); Blood Urea Nitrogen 7 mg/dl (8-23); Gamma Glutamyl Transpeptidase 29 U/L (8-61); Uric Acid 1.7 mg/dL (2.5-8.0)
[2018-08-18] MEDS: INSULIN LISPRO 1 UNIT/0.01 ML UNIT SQ SCH ×4 (07:18→21:14)
[2018-08-18] MEDS ORDERED: POTASSIUM PHOSPHATE 40 MEQ in DEXTROSE 5% IN WATER 500 ML IV ONE (08:25)
[2018-08-18] MEDS: CIPROFLOXACIN 400 MG/200 ML BAG IV SCH ×2 (08:43→21:13)
[2018-08-18] MEDS: MESALAMINE 500 MG CAPSULE PO SCH ×4 (08:43→21:14)
[2018-08-18] MEDS: methylPREDNISolone SOD SUCC 40 MG/ML VIAL IV SCH ×2 (08:44→21:14)
[2018-08-18] MEDS ORDERED: CIPROFLOXACIN 400 MG/200 ML BAG IV SCH (09:00)
[2018-08-19] MEDS: 0.9 % SODIUM CHLORIDE 10 ML SYRINGE IV SCH ×3 (05:54→22:08)
[2018-08-19] MEDS: metroNIDAZOLE 500 MG/100 ML BAG IV SCH ×3 (05:54→22:08)
[2018-08-19 07:08] LABS: Basophils # (Auto) 0 K/mcL (0.0-0.3); Basophils % (Auto) 0.2 % (0.0-2.0); Eosinophils # (Auto) 0 K/mcL (0.0-0.7); Eosinophils % (Auto) 0 % (0.0-7.0); Granulocytes % (Auto) 65.9 % (38.0-78.0); Lymphocytes # (Auto) 1.1 K/mcL (1.5-4.8); Lymphocytes % (Auto) 23.3 % (15.5-49.0); Mean Corpuscular HGB Conc 32.2 g/dL (31.0-36.0); Monocytes # (Auto) 0.5 K/mcL (0.1-0.9); Monocytes % (Auto) 10.6 % (1.0-12.0); Platelet Count 288 K/mcL (140-440); RBC 3.14 M/mcL (4.50-5.90); Red Cell Distribution Width 13.9 % (11.5-14.5)
[2018-08-19 07:40] LABS: ALT/SGPT 21 U/l (0-40); Albumin 1.9 gm/dL (3.2-5.2); Albumin/Globulin Ratio 0.7 (1.0-2.3); Alkaline Phosphatase 63 U/L (39-117); Bilirubin,Direct < 0.2 mg/dL (0.0-0.3); Blood Urea Nitrogen 11 mg/dl (8-23); Gamma Glutamyl Transpeptidase 28 U/L (8-61); Uric Acid 1.4 mg/dL (2.5-8.0)
[2018-08-19] MEDS: INSULIN LISPRO 1 UNIT/0.01 ML UNIT SQ SCH ×4 (08:48→22:08)
[2018-08-19] MEDS: methylPREDNISolone SOD SUCC 40 MG/ML VIAL IV SCH ×2 (08:48→22:06)
[2018-08-19] MEDS: MESALAMINE 500 MG CAPSULE PO SCH ×4 (08:48→22:08)
[2018-08-19] MEDS: CIPROFLOXACIN 400 MG/200 ML BAG IV SCH ×2 (08:49→22:07)
--- NOTE | 2018-08-19 10:34 | XRay Report ---
CLINICAL INFORMATION: colitis, megacolon COMPARISON: Abdomen and pelvic CT 08/17/2018 FINDINGS: The colon is mildly dilated and there is moderate thickening of the transverse and descending colon wall featuring thumbprinting and ahaustral pattern. Findings compatible with diffuse inflammation. The GI tract is relatively decompressed with minimal gas seen in normal-appearing small bowel. No soft tissue mass, organomegaly or pathologic calcification. IMPRESSION: Moderate wall thickening of the transverse and descending colonic segments compatible with diffuse inflammation. Interpreted and Authenticated by: Reji Qiu 08/19/18
--- NOTE | 2018-08-19 15:51 | Internal Med Progress Note ---
Medical - PN: Subj Patient information: Note initiated : 08/19/18 at 3:38 pm Service Date, if different from initiated Date: [] Patient: Mal Green a 68 y/o M admitted on 08/14/18 for weakness. Chief Complaint: [] Interval history: Mr. Green is a 68 year old M Referred to the ED by Jen Fuller for hypotension and bloody diarrhea. Patient states that about a month ago on 's he noticed bright red b lood per rectum. He stopped his Plavix at the time, for which he takes for vascular disease. He had a carotid endarterectomy on the right. Since stopping the Plavix use had dark diarrhea about 3 times a day and has been losing weight. He finally went into the walk-in clinic about a week ago and he was referred to see Jen Fuller who he saw today. Reports his systolic blood pressure was in the 80s in our office and he had evidence of GI bleed. He was sent to the ER where his blood pressure was in the 90s. I believe he received IV fluids at Jen Fuller's office. He received several liters of fluid in the ED which brought him up from the from 90 to low 100s. He was is mildly tachycardic. He also complains of dyspnea at rest and weakness, as well as lightheadedness. Denies fevers or chills. Has abdominal pain which he isolated more in the right lower quadrant which is crampy and sometimes sharp. In the ED had a CT abdomen pelvis which showed diffusely colitis along the a sending transverse and descending colon. C. difficile toxin was negative. 08/15 Patient adamantly refusing to undergo colonoscopy at the facility. Willing to undergo EGD but not colonoscopy. Had a discussion with him I could not persuade him. Said he is okay with having it done at [place] and requested the nurse life-flight him to [place]. Now he is okay with have the procedure done here. One episode of diarrhea overnight. Has some abdominal discomfort but otherwise no complaints 08/16 No overnight events. Little bit of abdominal discomfort but overall improved. No new pains or complaints. One loose stool overnight. H&H stable. 08/17 Patient seen and examined, tolerating her diet well, still a bit discomfort in abdomen otherwise no new complaints or concerns. No significant blood per rectum, patient still feels quite a bit weak 08/18 Patient is in examined, yesterday evening was febrile with a temperature of 102. Labs were unremarkable, blood culture sent. Repeat CT abdomen pelvis done shows that colitis is getting worse, colon diameter is 5.8 cm possible progression towards toxic neuro:, Patient feels weak, however his main concern is neuropathy denies any significant nausea or vomiting, has some tenderness in the left lower quadrant. I was unaware that a physical note in the chart had requested patient to be started on mesalamine, started that as per GI recommendations today, I discussed the biopsy results with Dr. Greene who will be following up on the patient he advised the patient to be started on IV Solu-Medrol 40 mg twice a day. 08/19 Pt seen examined, doing much better, able to amulate in the hallway, feeling good, no complaints, appreciate input from GI, Pertinent ROS: Denies headache, dizziness Denies chest pain, palpitations Denies cough or shortness of breath Denies abdominal pain, nausea or vomiting. - Constitutional Vitals: Vital Signs Temp Pulse Resp BP Pulse Ox 97.3 F 77 16 131/82 96 08/19/18 08:00 08/19/18 08:00 08/19/18 08:00 08/19/18 08:00 08/19/18 08:00 Period Temp Pulse Resp BP Sys/Leon Pulse Ox Last 24 Hr 97.3 F-97.5 F 77-86 16-16 113-131/73-82 93-96 Intake and Output 08/19/18 08/19/18 08/19/18 05:59 13:59 21:59 Intake Total 300 100 240 Output Total 600 800 200 Balance -300 -700 40 Weight 175 lb Patient Weight 08/20/18 05:59 Weight 175 lb Intake & Output: Intake & Output 08/19/18 08/19/18 08/19/18 05:59 13:59 21:59 Intake Total 300 100 240 Output Total 600 800 200 Balance -300 -700 40 Weight 175 lb Intake: IV 300 100 Oral 0 240 Output: Void Amount 600 800 200 Other: Urine Appearance Clear Clear Clear Urine Color Straw Dark Shahana Light Shahana Urine Odor Normal Normal Stool Size Moderate Stool Color Brown Stool Consistency Soft Loose # Bowel Movements 1 Exam: Constitutional; Afebrile, cooperative, alert, not in distress. Respiratory system: Air Entry equal on both sides, No crackles or wheezing, no rhonchi. CVS- Rate rhythm regular, S1,S2 heard, no gallop, no rub. Abdomen- Soft nontender abdomen, no organomegaly, no tenderness, no guarding or rigidity, SENIOR SOUS CHEF- AOOx3, moving all extremities, no gross focal deficit noted. Medical - PN: Obj Da - Labs CBC & Chem 7: 08/19/18 05:00 08/19/18 05:00 Labs: Abnormal Lab Results 08/19/18 08/19/18 08/18/18 05:00 05:00 05:00 RBC 3.14 L 3.33 L Hgb 9.0 L 9.7 L Hct 28.0 L 28.9 L [place] % (Auto) 12.3 H Lymph # (Auto) 1.1 L WBC Morphology Toxic Granulation RBC Morphology Polychromasia Sodium 132 L Anion Gap BUN Creatinine 0.4 L Glucose 286 H Uric Acid 1.4 L Calcium 7.9 L Phosphorus 2.6 L Total Protein 4.7 L Albumin 1.9 L Albumin/Globulin Ratio 0.7 L Ur Leukocyte Esterase Urine Mucus 08/18/18 08/17/18 08/17/18 05:00 22:30 20:32 RBC 3.37 L Hgb 9.6 L Hct 29.6 L [place] % (Auto) Lymph # (Auto) WBC Morphology Toxic Granulation RBC Morphology Polychromasia Sodium 131 L Anion Gap BUN 7 L Creatinine 0.5 L Glucose Uric Acid 1.7 L Calcium 7.6 L Phosphorus 1.9 L Total Protein 4.7 L Albumin 1.8 L Albumin/Globulin Ratio 0.6 L Ur Leukocyte Esterase 25 A Urine Mucus Many A 08/17/18 08/17/18 04:35 04:35 RBC 3.24 L Hgb 9.4 L Hct 28.8 L [place] % (Auto) Lymph # (Auto) WBC Morphology Abnorm A Toxic Granulation 1+ A RBC Morphology Abnorm A Polychromasia 1+ A Sodium Anion Gap 6.0 L BUN 7 L Creatinine 0.6 L Glucose 122 H Uric Acid 2.2 L Calcium 7.4 L Phosphorus 1.9 L Total Protein 4.4 L Albumin 1.9 L Albumin/Globulin Ratio 0.8 L Ur Leukocyte Esterase Urine Mucus Meds: Medications Acetaminophen (Tylenol) 650 mg PO Q6HP PRN PRN Reason: PAIN/FEVER > 101 Last Admin: 08/17/18 19:26 Dose: 650 mg Documented by: Albuterol/Ipratropium (Duoneb) 3 ml NEB Q4HP PRN PRN Reason: Shortness Of Breath Dextrose (Dextrose 50%) 0 ml IV UD PRN PRN Reason: Hypoglycemia Diagnostic Test (Pha) (Accu-Chek) 1 each FS [facility] Last Admin: 08/19/18 15:12 Dose: 1 each Documented by: Glucose (Insta-Glucose) 15 gm PO PRN PRN PRN Reason: Hypoglycemia Potassium Chloride 40 meq/ (Dextrose) 520 mls @ 130 mls/hr IV ONCE PRN PRN Reason: Potassium < 3 Last Infusion: 08/16/18 14:55 Dose: Infused Documented by: Magnesium Sulfate (Magnesium Sulfate) 2 gm in 50 mls @ 50 mls/hr IV ONCE PRN PRN Reason: Magnesium </= 1.6 Last Infusion: 08/17/18 00:05 Dose: Infused Documented by: Metronidazole (Flagyl) 500 mg in 100 mls @ 100 mls/hr IV Q8H [facility]; Protocol Last Admin: 08/19/18 15:12 Dose: 100 mls/hr Documented by: Ciprofloxacin (Cipro) 400 mg in 200 mls @ 200 mls/hr IV BID [facility]; Protocol Last Admin: 08/19/18 08:49 Dose: 200 mls/hr Documented by: Insulin Human Lispro (Humalog) 0 unit SQ [facility]; Protocol Last Admin: 08/19/18 15:12 Dose: 6 units Documented by: Mesalamine (Pentasa) 1,000 mg PO QID [facility] Last Admin: 08/19/18 15:12 Dose: 1,000 mg Documented by: Methylprednisolone Sodium Succinate (Solu-Medrol) 40 mg IV Q12 [facility] Last Admin: 08/19/18 08:48 Dose: 40 mg Documented by: Ondansetron HCl (Zofran) 4 mg IV Q4HP PRN PRN Reason: Nausea And Vomiting Potassium Chloride (Kdur) 40 meq PO ONCE PRN PRN Reason: Potssium is 3-3.5 Last Admin: 08/16/18 19:47 Dose: 40 meq Documented by: Potassium Chloride (Kdur) 40 meq PO ONCE PRN PRN Reason: Potassium < 3 Prochlorperazine (Compazine) 10 mg IV Q6HP PRN PRN Reason: Nausea And Vomiting Sodium Chloride (Saline Flush) 10 ml IV Q8 [facility] Last Admin: 08/19/18 15:13 Dose: 10 ml Documented by: Zolpidem Tartrate (Ambien) 5 mg PO HSP PRN PRN Reason: Insomnia Last Admin: 08/18/18 22:28 Dose: 5 mg Documented by: Medical - PN: A/P - Time Spent With Patient Total time spent is greater than 50% in coordination of care (as documented) at patient's floor/unit and/or counseling patient: - Narrative A/P Narrative: A: *Bloody diarrhea w/diffuse colitis: s/p colonoscopy 08/15 per GI IBD vs Ischemic colitis -c. diff neg *Symptomatic acute blood loss anemia w/Dyspnea and Hypotension: 2/2 above, -stable *DM: Diet-controlled *Vascular disease: With carotid endarterectomy *History of hepatitis C: Treated with Harvoni *Malnutrition: *Hypokalemia Hypoalbuminemia, DM neuropathy P: -monitor H&H, stable s -IV solumedrol and pentasa to continue, appreciate GI input, if remains stable till tomorrow, will d/c on oral prednisone with GI follow up COntinue IV ABX for now, will treat with abx orally as outpatient -daily X ray abdomen. -Plavix held, Ok to restart on d/c per GI -Hypoalbumineuma is due to gi loss, will need dietary intervention once inflammation resolves. -SSI -pt/ot -ppx: [facility] - PN: Qual - VTE Deep Vein Thrombosis/Pulmonary Embolism Present on Admission: Yes
[2018-08-19] MEDS: ZOLPIDEM 5 MG TABLET PO PRN (22:09)
[2018-08-20] MEDS: metroNIDAZOLE 500 MG/100 ML BAG IV SCH (05:39)
[2018-08-20] MEDS: 0.9 % SODIUM CHLORIDE 10 ML SYRINGE IV SCH (05:39)
--- NOTE | 2018-08-20 06:49 | XRay Report ---
CLINICAL INFORMATION: Abdominal pain - colitis COMPARISON: None. FINDINGS: Moderate wall thickening of the transverse colon with thumbprinting compatible with infiltrative inflammation is similar previous study. A few loops of small bowel in the central abdomen are now minimally dilated with air-fluid levels. No free air or soft tissue mass IMPRESSION: Colitis changes transverse colon stable Mild dilatation of a small bowel segment in the central abdomen more likely represents atypical ileus rather than developing small bowel obstruction Interpreted and Authenticated by: Reji Qiu 08/20/18
[2018-08-20 06:52] LABS: Basophils # (Auto) 0 K/mcL (0.0-0.3); Basophils % (Auto) 0.2 % (0.0-2.0); Eosinophils # (Auto) 0 K/mcL (0.0-0.7); Eosinophils % (Auto) 0 % (0.0-7.0); Granulocytes % (Auto) 66.8 % (38.0-78.0); Lymphocytes # (Auto) 1.3 K/mcL (1.5-4.8); Lymphocytes % (Auto) 22.5 % (15.5-49.0); Mean Cell Volume 88.8 fL (80.0-100.0); Monocytes # (Auto) 0.6 K/mcL (0.1-0.9); Monocytes % (Auto) 10.5 % (1.0-12.0); Platelet Count 331 K/mcL (140-440); Red Cell Distribution Width 13.8 % (11.5-14.5)
[2018-08-20 07:18] LABS: ALT/SGPT 19 U/l (0-40); Albumin 2.2 gm/dL (3.2-5.2); Albumin/Globulin Ratio 0.8 (1.0-2.3); Alkaline Phosphatase 73 U/L (39-117); Bilirubin,Direct < 0.2 mg/dL (0.0-0.3); Blood Urea Nitrogen 17 mg/dl (8-23); Gamma Glutamyl Transpeptidase 34 U/L (8-61)
[2018-08-20] MEDS: INSULIN LISPRO 1 UNIT/0.01 ML UNIT SQ SCH (07:41)
--- NOTE | 2018-08-20 09:53 | Discharge Summary ---
Medical - DS: Prov Patient information: Note initiated : 08/20/18 at 9:49 am Service Date, if different from initiated Date: [] Patient: Mal Green 68 y/o M admitted on 08/14/18 for weakness. Chief Complaint: [] Date of admission: 08/14/18 18:54 Discharge date: 08/20/18 Primary care physician: Sophy Vizcaino DO Consults: 08/14/18 Consult to Physician [CONS] Stat Comment: Consulting Provider: Irineo Bella Reason For Exam: Physician to Consult Consult to Physician [CONS] Stat Comment: Consulting Provider: Waqar Ellison Reason For Exam: Physician to Consult Discharging clinician: Norberto Edgar Medical - DS: Meds - Discharge Medications Prescriptions: Ciprofloxacin HCl [Cipro] 500 mg PO BID #10 tab Insulin Lispro [Humalog] See Protocol SQ ACHS #50 ml Mesalamine [Pentasa] 1,000 mg PO QID #240 cap metroNIDAZOLE [Flagyl] 500 mg PO TID #15 tab predniSONE [Prednisone] 30 mg PO QAMCC #45 tab Active and Home Medications: Home Medications milk thistle 150 mg capsule 300 mg PO QDAY 08/04/18 [History Confirmed 08/14/18 Last Taken Unknown] Medical - DS: Hosp Hospital course: Mr. Green is a 68 year old M Referred to the ED by Jen Fuller for hypotension and bloody diarrhea. Patient states that about a month ago on he noticed bright red blood per rectum. He stopped his Plavix at the time, for which he takes for vascular disease. He had a carotid endarterectomy on the right. Since stopping the Plavix use had dark diarrhea about 3 times a day and has been losing weight. He finally went into the walk-in clinic about a week ago and he was referred to see Jen Fuller who he saw today. Reports his systolic blood pressure was in the 80s in our office and he had evidence of GI bleed. He was sent to the ER where his blood pressure was in the 90s. I believe he received IV fluids at Jen Fuller's office. He received several liters of fluid in the ED which brought him up from the from 90 to low 100s. He was is mildly tachycardic. He also complains of dyspnea at rest and weakness, as well as lightheadedness. Denies fevers or chills. Has abdominal pain which he isolated more in the right lower quadrant which is crampy and sometimes sharp. In the ED had a CT abdomen pelvis which showed diffusely colitis along the a sending transverse and descending colon. C. difficile toxin was negative. 08/15 Patient adamantly refusing to undergo colonoscopy at the facility. Willing to undergo EGD but not colonoscopy. Had a discussion with him I could not persuade him. Said he is okay with having it done at [facility] and requested the nurse life-flight him to [facility]. Now he is okay with have the procedure done here. One episode of diarrhea overnight. Has some abdominal discomfort but otherwise no complaints 08/16 No overnight events. Little bit of abdominal discomfort but overall improved. No new pains or complaints. One loose stool overnight. H&H stable. 08/17 Patient seen and examined, tolerating her diet well, still a bit discomfort in abdomen otherwise no new complaints or concerns. No significant blood per rectum, patient still feels quite a bit weak 08/18 Patient is in examined, yesterday evening was febrile with a temperature of 102. Labs were unremarkable, blood culture sent. Repeat CT abdomen pelvis done shows that colitis is getting worse, colon diameter is 5.8 cm possible progression towards toxic neuro:, Patient feels weak, however his main concern is neuropathy denies any significant nausea or vomiting, has some tenderness in the left lower quadrant. I was unaware that a physical note in the chart had requested patient to be started on mesalamine, started that as per GI recommendations today, I discussed the biopsy results with Dr. Greene who will be following up on the patient he advised the patient to be started on IV Solu-Medrol 40 mg twice a day. 08/19 Pt seen examined, doing much better, able to amulate in the hallway, feeling good, no complaints, appreciate input from GI, 08/20 pt seen examiend, no acute overnight issues, labs stable, pt tolerating po diet well, ambulating in the hallway, has no complaints or concerns. Switch to oral prednisone, pentasa as per GI Pt prescribed insulin given that he is now on prednisone and will need tighter sugar control, he refused long acting insulin, has used insulin in the past. short course of antibiotics. He is having daily soft bowel movements. Discharge diagnosis: Inflammatory colitis. - Time Spent with Patient Total time spent providing and/or coordinating discharge services: Greater than 30 minutes Medical - DS: Exam - Constitutional Vitals: Vital Signs Temp Pulse Resp BP BP Pulse Ox 08/20/18 06:35 97.2 F 16 118/76 95 08/20/18 03:25 97.8 F 70 18 121/78 95 08/19/18 23:25 97.6 F 80 18 116/75 96 08/19/18 19:10 97.7 F 78 18 122/79 96 08/19/18 16:00 97.5 F 80 16 134/75 94 08/19/18 12:00 97.5 F 75 16 127/77 95 Intake and Output 08/19/18 08/20/18 08/20/18 21:59 05:59 13:59 Intake Total 1540 700 580 Output Total 450 1425 250 Balance 1090 -725 330 Intake: IV 100 300 100 Oral 1440 400 480 Output: Void Amount 450 1425 250 Other: Meal Dinner Breakfast Percent of Meal Consumed 100% 100% Feeding Ability Independent Urine Appearance Clear Clear Urine Color Dark Yellow Dark Yellow Light Shahana Urine Odor Normal Normal Normal Stool Size Moderate Small Stool Color Brown Brown Blood Tinged Stool Consistency Loose Soft # Voids 1 # Bowel Movements 1 1 Weight 174 lb 11.2 oz Additional comments: Constitutional; Afebrile, cooperative, alert, not in distress. Eyes- No icterus, , No periorbital swelling Ears- Ext ear normal, hearing normal to conversation. Neck- Midline trachea, supple Respiratory system: Air Entry equal on both sides, No crackles or wheezing, no rhonchi. CVS- Rate rhythm regular, S1,S2 heard, no gallop, no rub. Abdomen- Soft nontender abdomen, no organomegaly, no tenderness, no guarding or rigidity, FORGER HELPER- AOOx3, moving all extremities, no gross focal deficit noted. Medical - DS: Data Labs on day of discharge: Labs from last 24 hours 08/20/18 08/20/18 05:00 05:00 WBC 6.0 RBC 3.20 L Hgb 9.1 L Hct 28.4 L MCV 88.8 MCH 28.4 MCHC 32.0 RDW 13.8 Plt Count 331 MPV 8.4 Gran % 66.8 Lymph % (Auto) 22.5 Merrick % (Auto) 10.5 Eos % (Auto) 0 Baso % (Auto) 0.2 Gran # 4.0 Lymph # (Auto) 1.3 L Merrick # (Auto) 0.6 Eos # (Auto) 0 Baso # (Auto) 0 Sodium 133 Potassium 4.9 Chloride 96 Carbon Dioxide 27 Anion Gap 10.0 BUN 17 Creatinine 0.6 L GFR Calculation 102 Glucose 177 H Uric Acid 2.0 L Calcium 8.3 L Phosphorus 2.7 Magnesium 2.1 Total Bilirubin 0.2 Direct Bilirubin < 0.2 GGT 34 AST 19 ALT 19 Alkaline Phosphatase 73 Lactate Dehydrogenase 236 Total Protein 5.1 L Albumin 2.2 L Globulin 2.9 Albumin/Globulin Ratio 0.8 L Triglycerides 88 Preliminary micro results at discharge 08/17/18 20:39 Blood Culture - Preliminary Blood 08/17/18 20:32 Blood Culture - Preliminary Blood Medical - DS: A/P - Patient/Caregiver Discharge Instructions Activity: increase activity as tolerated Diet: Consistent Carbohydrate Additional Instructions: Follow up with your PCP in 1 week Follow up with Dr Greene in 1-2 weeks Go to the ER if worsening condition or chest pain, fever shorntess of breath or any other acute concern. Take prednisone ,30mg with food, till advised to stop/taper by the inorganic chemical technician, do not stop this medication by self Take pentasa, 1000mg four times a day, new medication for your colon. Discuss glucose management with your PCP. - Follow up Plan Follow up with: Sophy Vizcaino DO [Primary Care Provider] - Irineo Bella MD [Physician] - Disposition: Home, Self-Care Prognosis: Fair Rehab Potential: Fair I certify that the patient requires SNF services: No Overall status at discharge: patient is progressing back to baseline Medical - DS: Qual - VTE Deep Vein Thrombosis/Pulmonary Embolism Present on Admission: Yes
[2018-08-20] MEDS: MESALAMINE 500 MG CAPSULE PO SCH (09:56)
[2018-08-20] MEDS: methylPREDNISolone SOD SUCC 40 MG/ML VIAL IV SCH (09:57)
[2018-08-20] MEDS: CIPROFLOXACIN 400 MG/200 ML BAG IV SCH (09:57)
== END 2018-08-20 12:25 | disposition home or self-care (01) | DRG 386 ==
LOC: ED 11:27 → ICU 18:54 → MEDSUR 08-15 13:16
PROVIDERS: ADMIT Internal Medicine; ATTEND Internal Medicine
PROC: COLONBX (2018-08-15 16:00)